=== PATIENT | male | born 1940 | race Caucasian/White ===

== ENCOUNTER 2016-08-21 14:20 | Emergency (ER) | payer MEDICARE, BC ==
[~2016-08-21] VITALS: Ht 170.2 cm; Wt 99.0 kg
[~2016-08-21 14:20] MED LIST: ATEN1TAB75 PO; CHLORTHALIDONE PO; GABA600T PO; GLUCTAB PO; GLYB1TAB51 PO; KLOR8TAB PO; L-THYROXINE PO; MAGN400T PO; META800 PO; OMEG1CAP53 PO; PIRO20CA PO; STOO100C PO; TAB-TAB PO; ZOCO40TA PO; [UNRECOGNIZED DRUG - CODE] PO
[2016-08-21 14:22] VITALS: BP 162/84; PULSE 16; PULSE 64; RESP 16; TEMP 98.1; O2SAT 94
--- NOTE | 2016-08-21 15:00 | PD ---
HPI Chief Complaint: Hypertension Time Seen by Provider: 14:40 Travel History International Travel<30 days: No Contact w/Intl Traveler<30days: No Traveled to known affect area: No History of Present Illness HPI This 76-year-old male presents emergency department complaining of "my blood pressure". He states that he is a history of high blood pressure. He was taking atenolol 150 mg daily, as well as chlorthalidone. Is a pain management a couple days ago when he had a blood pressure 216/100. He was sent to [facility] oriented some blood work done, they gave him some what sounds like clonidine, and started him on amlodipine. Blood pressure was improved but then today he noticed some headache, and a blood pressure 187/100 at [facility]. He went to the fire department is 162/98 so follow-up in the emergency department here. He's also primary care doctor yesterday had him stop the chlorthalidone and is continuing really to see atenolol 150, and 5 mg of Norvasc. History Past Medical History Narrative Medical Hypertension Diabetes Social History Alcohol Use: No Tobacco Use: No Allergies-Medications (Allergen,Severity, Reaction): Coded Allergies: Sulfa (Verified Allergy, Severe, RASH, 08/21/16) Actifed (Verified Allergy, Intermediate, HYPERACTIVE, 08/21/16) Sudafed (Verified Allergy, Mild, HYPERACTIVE, 08/21/16) Reported Meds & Prescriptions Reported Meds & Active Scripts Active Skelaxin (Metaxalone) 800 Mg Tab 800 Mg PO Q8HR PRN Reported Gabapentin 600 Mg Tab 600 Mg PO DAILY Piroxicam 20 mg (Piroxicam) Unknown Strength Cap Unknown Dose PO DAILY Klor-Con 8 (Potassium Chloride) 8 Meq Tab 8 Meq PO DAILY Glucophage (Metformin HCl) 500 Mg Tab 500 Mg PO BID Diabeta (Glyburide) 5 Mg Tab 5 Mg PO BID [L-Thyroxine ] 25 Mg PO DAILY Zocor 40 mg (Simvastatin) 40 Mg Tab 40 Mg PO DAILY [Clorthaldone] 1 Tab PO DAILY 50/75 MG 1 TAB DAILY Lovaza (Fish Oil) 1 Gm Cap 2 Gm PO BID Feldene (Piroxicam) 10 Mg Cap 10 Mg PO DAILY Colace (Docusate Sodium) 100 Mg Cap 100 Mg PO DAILYPRN Mag-Ox 400 (Magnesium Oxide) 400 Mg Tab 400 Mg PO DAILY Multivitamin (Multivitamins) 1 Tab Tab 1 Tab PO DAILY Tenormin (Atenolol) 100 Mg Tab 150 Mg PO DAILY Review of Systems Except as stated in HPI: all other systems reviewed are Neg Physical Exam Narrative GENERAL: Well-appearing 36 old man, no acute distress. SKIN: Warm and dry. HEAD: Atraumatic. Normocephalic. EYES: Pupils equal and round. No scleral icterus. No injection or drainage. ENT: No nasal bleeding or discharge. Mucous membranes pink and moist. NECK: Trachea midline. No JVD. CARDIOVASCULAR: Regular rate and rhythm. No murmur appreciated. RESPIRATORY: No accessory muscle use. Clear to auscultation. Breath sounds equal bilaterally. GASTROINTESTINAL: Abdomen soft, non-tender, nondistended. Hepatic and splenic margins not palpable. MUSCULOSKELETAL: No obvious deformities. No clubbing. No cyanosis. No edema. NEUROLOGICAL: Awake and alert. No obvious cranial nerve deficits. Motor grossly within normal limits. Normal speech. PSYCHIATRIC: Appropriate mood and affect; insight and judgment normal. Data Data Last Documented VS Vital Signs Date Time Temp Pulse Resp B/P Pulse Ox O2 Delivery O2 Flow Rate FiO2 08/21/16 14:22 98.1 64 16 162/84 94 MDM Medical Decision Making Medical Screen Exam Complete: Yes Emergency Medical Condition: Yes Differential Diagnosis Paced medical hypertension, headache, head bleed, essential hypertension, other Narrative Course Medical decision making 76-year-old man presents emergent [place] of some headache, elevated blood pressure. Blood pressure is 170s over 100. He looks well. He was just started on amlodipine 2 days ago. I think he needs more time on the amlodipine. I encourage and keep a blood pressure log. Headache may be secondary to blood pressure may not be. I will see any evidence of hemorrhage or ICH. It sounds like he was pretty asymptomatic when he first was told he had elevated blood pressure at his pain management doctor's office incidentally. Diagnosis Primary Impression: High blood pressure Additional Instructions: Keep a log of your blood pressures. Follow-up with her primary care doctor in 2-4 days. Return to the emergency department for any worsening headache, chest pain or trouble breathing, persistent elevated pressures greater than 220/120, or any other new or worsening symptoms. Med/Other Pt SpecificInfo: No Change to Meds Disposition: 01 DISCHARGE HOME Condition: Stable Mahin Brito MD Aug 21, 2016 15:00
[2016-08-21] MEDS ORDERED: ATEN100T PO (15:02)
[2016-08-21] MEDS ORDERED: CENTTAB PO (15:02)
[2016-08-21] MEDS ORDERED: GABA600T PO (15:02)
[2016-08-21] MEDS ORDERED: ASPI81CH CHEW (15:02)
[2016-08-21] MEDS ORDERED: SYNT25TA PO (15:02)
[2016-08-21] MEDS ORDERED: OXYC-395 PO (15:02)
[2016-08-21] MEDS ORDERED: METF1000 PO (15:02)
[2016-08-21] MEDS ORDERED: ATOR1TAB18 PO (15:02)
[2016-08-21] MEDS ORDERED: GLYB5TAB3 PO (15:02)
[2016-08-21] MEDS ORDERED: AMLO5TAB2 PO (15:02)
[2016-08-21] MEDS ORDERED: OMEGCAP PO (15:02)
[2016-08-21] MEDS ORDERED: SITA50 PO (15:02)
[2016-08-21] MEDS ORDERED: DICL75TA PO (15:02)
[2016-08-21] MEDS ORDERED: LACT10SO27 (15:02)
== END 2016-08-21 15:13 | disposition home or self-care (01) ==
LOC: PHED 14:20
DX: I10 Essential (primary) hypertension (principal); E11.9 Type 2 diabetes mellitus without complications; Z79.84 Long term (current) use of oral hypoglycemic drugs
CPT/HCPCS: 99283

== ENCOUNTER 2018-04-06 17:25 | Observation (INO) ==
--- NOTE | 2018-04-06 17:40 | ED ---
HPI General Chief Complaint: Chest Pain Stated Complaint: Chest pain x last night Time Seen by Provider: 04/06/18 17:34 Source: patient Mode of arrival: ambulatory Limitations: no limitations History of Present Illness HPI narrative: The patient is a 77-year-old male who presents to the emergent pain. The patient states he developed chest pain last night approximately 4 AM that awakened him from his sleep. 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 The patient was awakened at 4 AM with substernal chest pain which was dull, aching, and associate with mild diaphoresis. The patient does have a history of chronic back pain for which he takes oxycodone, states occasionally he will have diaphoresis when he has not taken his medication. The patient's pain lasted approximately 15 minutes and then self resolved. The patient then had several episodes throughout the day of substernal nonradiating chest pain associated with diaphoresis but no shortness of breath, nausea, or vomiting. The patient states multiple episodes today that were not related to exertion. He denies any exertional symptoms. He denies any history of known coronary artery disease and catheterization or stress test. The patient does have a history of hypertension, hyperlipidemia, and diabetes. The patient quit smoking in . The patient denies any history of pulmonary embolism, DVT, recent travel, recent hospitalizations, or present prolonged travel. The patient did have a nerve burning procedure performed on an outpatient basis yesterday. MD complaint: Reports chest pain STEMI Alert: No Onset (ago): hour(s) Duration: intermittent Onset: during rest Pain location: Reports substernal Severity: moderate Severity scale (1-10): 5 Quality: Reports aching and dull Pain radiation: Reports none Relieving factors: nothing Exacerbating factors: nothing Associated symptoms: Reports diaphoresis Treatments prior to arrival chest pain: Reports none Related Data Home Medications Medication Instructions Recorded Confirmed amlodipine 5 mg PO DAILY 04/06/18 04/06/18 aspirin [Aspir-Low] 81 mg PO DAILY 04/06/18 04/06/18 atenolol 150 mg PO DAILY 04/06/18 04/06/18 atorvastatin 80 mg PO DAILY 04/06/18 04/06/18 gabapentin 1,800 mg PO HS 04/06/18 04/06/18 gabapentin 600 mg PO DAILY 04/06/18 04/06/18 glyburide 5 mg PO DAILY 04/06/18 04/06/18 levothyroxine [Synthroid] 25 mcg PO DAILY 04/06/18 04/06/18 metformin 1,200 mg PO BID 04/06/18 04/06/18 oxycodone 10 mg PO TID 04/06/18 04/06/18 oxycodone 20 mg PO HS 04/06/18 04/06/18 sitagliptin [Januvia] 50 mg PO DAILY 04/06/18 04/06/18 Allergies Allergy/AdvReac Type Severity Reaction Status Date / Time Sulfa (Sulfonamide Allergy Severe RASH Verified 04/06/18 18:00 Antibiotics) triprolidine Allergy Intermediate HYPERACTIVE Verified 04/06/18 18:00 pseudoephedrine Allergy Mild HYPERACTIVE Verified 04/06/18 18:00 Review of Systems ROS: all other systems reviewed are negative [facility] Medical History Medical History Chronic back pain (Acute) Diabetes (Acute) High cholesterol (Acute) Hypertension (Acute) Social History Social History Substance History: No History of Abuse Smoking Status: Former smoker Tobacco Type: Cigarettes How Often Do You Have a Drink Containing Alcohol: Never Recent Travel in [facility] within the Last 8 Weeks: No Recent Out of Country Travel within the Last 8 Weeks: No Exam Narrative Exam Narrative: GENERAL: Awake, alert, pleasant 77-year-old male who appears his stated age and is in no acute respiratory distress. SKIN: Focused skin assessment warm/dry. HEAD: Atraumatic. Normocephalic. EYES: Pupils equal and round. No scleral icterus. No injection or drainage. ENT: No nasal bleeding or discharge. Mucous membranes pink and moist. NECK: Trachea midline. No JVD. CARDIOVASCULAR: Regular rate and rhythm. No murmur appreciated. RESPIRATORY: No accessory muscle use. Clear to auscultation. Breath sounds equal bilaterally. GASTROINTESTINAL: Abdomen soft, non-tender, nondistended. No epigastric tenderness. No guarding rigidity. Back: 2 Band-Aids noted in the lower lumbar region. MUSCULOSKELETAL: No obvious deformities. No clubbing. No cyanosis. No edema. NEUROLOGICAL: Awake and alert. No obvious cranial nerve deficits. Motor grossly within normal limits. Normal speech. Nonfocal. PSYCHIATRIC: Appropriate mood and affect; insight and judgment normal. Course Initial Documented Vital Signs Temperature 97.7 F 11/07/18 17:30 Pulse Rate 83 04/06/18 17:30 Respiratory Rate 18 04/06/18 17:30 Blood Pressure 176/72 H 04/06/18 17:30 Pulse Oximetry 97 04/06/18 17:30 Last Documented Vital Signs Temperature 97.7 F 04/06/18 17:30 Pulse Rate 70 04/06/18 18:22 Respiratory Rate 18 04/06/18 18:22 Blood Pressure 152/78 H 04/06/18 18:22 Pulse Oximetry 96 04/06/18 18:22 Medical Decision Making MDM Narrative Medical decision making narrative: IV was established, labs are drawn and sent, and the patient was placed on cardiac telemetry monitoring and continuous pulse oximetry monitoring. EKG was ordered and interpreted. Chest x-ray was obtained. The patient was administered aspirin 162 mg orally, however, the medications were held as EKG was unremarkable initially and patient was chest pain-free upon arrival. Troponin and CPK were sent to lab. The patient's initial troponin and CPK were negative. White count was minimally elevated at 14.2. Chest x-ray reveals poor inspiratory effort otherwise atelectasis and no other acute cardiopulmonary abnormalities noted. The patient does have substernal chest pain could be ACS versus reflux, however, he is a male over the age of 50 5U has hypertension, hyperlipidemia, and diabetes but no previous stress test. Therefore, the patient will be a 23-hour observation to the chest pain center for serial cardiac enzymes and further evaluation by cardiology. The patient states he will need his Neurontin and oxycodone for his neuropathy, otherwise, he will be "miserable". Medical Screen Exam Complete: Yes Emergency Medical Condition: Yes Differential Diagnosis Differential Diagnosis: Differential diagnosis includes ACS, STEMI, GERD, esophageal spasm, reflux, gastritis, peptic ulcer disease, esophageal spasm, pneumonia, dissection. Lab Data Result diagrams: 04/06/18 17:35 04/06/18 17:35 Lab Results 04/06/18 04/06/18 04/06/18 Range/Units 17:35 17:35 17:35 CBC w Diff Auto diff final WBC 14.2 H (4.0-11.0) th/mm3 RBC 5.17 (4.50-5.90) mil/mm3 Hgb 14.8 (13.0-17.0) gm/dL Hct 45.0 (39.0-51.0) % MCV 86.9 (80.0-100.0) fL MCH 28.7 (27.0-34.0) pg MCHC 33.0 (32.0-36.0) % RDW 14.6 (11.6-17.2) % Plt Count 212 (150-450) th/mm3 MPV 8.4 (7.0-11.0) fL Neut % (Auto) 85.7 H (16.0-70.0) % Lymph % (Auto) 10.7 (9.0-44.0) % [place] % (Auto) 2.9 (0.0-8.0) % Eos % (Auto) 0.1 (0.0-4.0) % Baso % (Auto) 0.6 (0.0-2.0) % Neut # (Auto) 12.2 H (1.8-7.7) th/mm3 Lymph # (Auto) 1.5 (1.0-4.8) th/mm3 [place] # (Auto) 0.4 (0.0-0.9) th/mm3 Eos # (Auto) 0.0 (0.0-0.4) th/mm3 Baso # (Auto) 0.1 (0.0-0.2) th/mm3 WBC Differential . Differential Comment . PT 10.6 (9.8-11.6) sec INR 1.0 Ratio APTT 32.9 H (23.4-31.7) sec Sodium 137 (136-145) meq/L Potassium 4.2 (3.5-5.1) meq/L Chloride 101 (98-107) meq/L Carbon Dioxide 25.8 (21.0-32.0) meq/L Anion Gap 10 (5-15) meq/L BUN 23 H (7-18) mg/dL Creatinine 1.30 (0.60-1.30) mg/dL Estimated GFR 54 L (>89) mL/min Random Glucose 293 H (74-106) mg/dL Calcium 9.2 (8.5-10.1) mg/dL Magnesium (1.5-2.5) mg/dL Total Bilirubin 0.5 (0.2-1.0) mg/dL AST 13 L (15-37) U/L ALT 25 (12-78) U/L Alkaline Phosphatase 113 (45-117) U/L Total Creatine Kinase 143 (39-308) U/L CK-MB (CK-2) 6.5 H (0.5-3.6) ng/mL Troponin I Less than 0.02 L (0.02-0.05) ng/mL Total Protein 8.3 H (6.4-8.2) g/dL Albumin 3.8 (3.4-5.0) g/dL Lipase 179 (73-393) U/L 04/06/18 Range/Units 17:35 CBC w Diff WBC (4.0-11.0) th/mm3 RBC (4.50-5.90) mil/mm3 Hgb (13.0-17.0) gm/dL Hct (39.0-51.0) % MCV (80.0-100.0) fL MCH (27.0-34.0) pg MCHC (32.0-36.0) % RDW (11.6-17.2) % Plt Count (150-450) th/mm3 MPV (7.0-11.0) fL Neut % (Auto) (16.0-70.0) % Lymph % (Auto) (9.0-44.0) % [place] % (Auto) (0.0-8.0) % Eos % (Auto) (0.0-4.0) % Baso % (Auto) (0.0-2.0) % Neut # (Auto) (1.8-7.7) th/mm3 Lymph # (Auto) (1.0-4.8) th/mm3 [place] # (Auto) (0.0-0.9) th/mm3 Eos # (Auto) (0.0-0.4) th/mm3 Baso # (Auto) (0.0-0.2) th/mm3 WBC Differential Differential Comment PT (9.8-11.6) sec INR Ratio APTT (23.4-31.7) sec Sodium (136-145) meq/L Potassium (3.5-5.1) meq/L Chloride (98-107) meq/L Carbon Dioxide (21.0-32.0) meq/L Anion Gap (5-15) meq/L BUN (7-18) mg/dL Creatinine (0.60-1.30) mg/dL Estimated GFR (>89) mL/min Random Glucose (74-106) mg/dL Calcium (8.5-10.1) mg/dL Magnesium 2.0 (1.5-2.5) mg/dL Total Bilirubin (0.2-1.0) mg/dL AST (15-37) U/L ALT (12-78) U/L Alkaline Phosphatase (45-117) U/L Total Creatine Kinase (39-308) U/L CK-MB (CK-2) (0.5-3.6) ng/mL Troponin I (0.02-0.05) ng/mL Total Protein (6.4-8.2) g/dL Albumin (3.4-5.0) g/dL Lipase (73-393) U/L Imaging Data Radiologist's impression: Chest X-Ray 04/06/18 17:34 CONCLUSION: Hypoaerated lungs with mild left basilar atelectasis No other evidence of acute process. ECG Data EKG Prior to Arrival: Yes Attestation: I personally reviewed and interpreted this ECG as follows: Interpretation: EKG reveals normal sinus rhythm with a rate 82. No ischemic changes or ectopy noted. Discharge Plan Discharge Disposition Patient Disposition: 30 Still Patient Discharge Condition Condition: Stable Discharge Details Diagnosis: Chest pain Physicians Team ED Provider: Cas Matias Primary Care Provider: Ryan López Rxs /Orders / Referrals /Forms Prescriptions: No Action atorvastatin 80 mg Tablet 80 mg PO DAILY RF: 0 gabapentin 600 mg Tablet 1,800 mg PO HS RF: 0 gabapentin 600 mg Tablet 600 mg PO DAILY RF: 0 glyburide 5 mg Tablet 5 mg PO DAILY RF: 0 atenolol 100 mg Tablet 150 mg PO DAILY RF: 0 amlodipine 5 mg Tablet 5 mg PO DAILY RF: 0 aspirin [Aspir-Low] 81 mg Tablet,Delayed Release (Dr/Ec) 81 mg PO DAILY RF: 0 levothyroxine [Synthroid] 25 mcg Tablet 25 mcg PO DAILY RF: 0 metformin 1,000 mg Tablet 1,200 mg PO BID RF: 0 sitagliptin [Januvia] 50 mg Tablet 50 mg PO DAILY RF: 0 oxycodone 10 mg Tablet 10 mg PO TID RF: 0 oxycodone 20 mg Tablet 20 mg PO HS RF: 0 Discharge Instructions Patient Printed Instructions: Chest Pain (ED) Status ED Status: Admitted Observation Patient
--- NOTE | 2018-04-06 17:48 | XR ---
EXAM DATE: 04/06/2018 5:43 PM EST AGE/SEX: 77 years / Male INDICATIONS: Chest pain. CLINICAL DATA: This is the patient's initial encounter. Patient reports that signs and symptoms have been present for 1 day and indicates a pain score of 8/10. MEDICAL/SURGICAL HISTORY: Hypertension. Diabetes. None. COMPARISON: No prior exams available for comparison. FINDINGS: Lungs are hypoaerated. Some minimal airspace disease is seen on the left. Heart and mediastinal structures appear normal. Osseous structures are intact. CONCLUSION: Hypoaerated lungs with mild left basilar atelectasis No other evidence of acute process. Electronically signed by: Pillo Springer MD 04/06/2018 5:47 PM EST
[2018-04-06 17:51] LABS: Baso # (Auto) 0.1 th/mm3 (0.0-0.2); Baso % (Auto) 0.6 % (0.0-2.0); Eos % (Auto) 0.1 % (0.0-4.0); Hemoglobin 14.8 gm/dL (13.0-17.0); Lymph # (Auto) 1.5 th/mm3 (1.0-4.8); Lymph % (Auto) 10.7 % (9.0-44.0); Mean Corpuscular Hemoglobin 28.7 pg (27.0-34.0); Mean Corpuscular Volume 86.9 fL (80.0-100.0); Mean Platelet Volume 8.4 fL (7.0-11.0); Mono # (Auto) 0.4 th/mm3 (0.0-0.9); Mono % (Auto) 2.9 % (0.0-8.0); Neut # (Auto) 12.2 th/mm3 (1.8-7.7); Neut % (Auto) 85.7 % (16.0-70.0); Platelet Count 212 th/mm3 (150-450); Red Blood Count 5.17 mil/mm3 (4.50-5.90); Red Cell Distribution Width 14.6 % (11.6-17.2); White Blood Count 14.2 th/mm3 (4.0-11.0)
[2018-04-06 18:05] LABS: Chloride 101 meq/L (98-107); Potassium 4.2 meq/L (3.5-5.1); Sodium 137 meq/L (136-145)
[2018-04-06 18:08] LABS: Calcium 9.2 mg/dL (8.5-10.1)
[2018-04-06 18:09] LABS: Activated Partial Thrombo Time 32.9 sec (23.4-31.7); Albumin 3.8 g/dL (3.4-5.0); Anion Gap 10 meq/L (5-15); Blood Urea Nitrogen 23 mg/dL (7-18); Carbon Dioxide 25.8 meq/L (21.0-32.0); Glucose,Random 293 mg/dL (74-106); Lipase 179 U/L (73-393); Prothrombin Time 10.6 sec (9.8-11.6)
[2018-04-06 18:12] LABS: Alanine Aminotransferase 25 U/L (12-78); Aspartate Aminotransferase 13 U/L (15-37); Glomerular Filtration Rate 54 mL/min (>89)
[2018-04-06 18:13] LABS: Total Protein 8.3 g/dL (6.4-8.2)
[2018-04-06 18:14] LABS: Alkaline Phosphatase 113 U/L (45-117); Creatine Kinase 143 U/L (39-308)
[2018-04-06] MEDS ORDERED: Gabapentin 100 MG Capsule PO ONE (18:23)
[2018-04-06 18:27] LABS: Creatine Kinase MB 6.5 ng/mL (0.5-3.6)
[2018-04-06] MEDS ORDERED: Acetaminophen 500 MG Tablet PO PRN (18:32)
[2018-04-06] MEDS ORDERED: Dextrose 50% in Water 50 ML Vial IV.PUSH PRN (18:37)
[2018-04-06] MEDS ORDERED: Gabapentin 300 MG Capsule PO ONE (19:00)
[2018-04-06 21:25] LABS: Creatine Kinase 122 U/L (39-308)
[2018-04-06] MEDS: Insulin NovoLOG Aspart Correctional Sugar Inj SQ SCH (21:42)
[2018-04-07 00:07] LABS: Creatine Kinase 119 U/L (39-308)
--- NOTE | 2018-04-07 06:26 | P.HP ---
History of Present Illness Primary Care Physician: Ryan López DO Chief Complaint: Chest pain History of Present Illness: 77-year-old male with known history of hypertension, hyperlipidemia, diabetes, chronic back pain, peripheral neuropathy who presented to the hospital because of chest discomfort. 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 Patient states that he went to sleep and was woke up because of chest pain located in the middle part of his chest at approximately 5:30 AM. Patient states that it was a 3/10 on a pain scale which she describes as a burning type sensation. Lasted for approximately 10 minutes and went away on its own. Patient states that the pain did return approximately 3-4 times during the day which prompted him to come to the emergency department. Patient states that he is had this type of discomfort in the back in usually related to gastric reflux. He usually takes Gaviscon with relief. However he did not take any during this episode. Patient denies any radiation to his back, neck, shoulder, arm. Denied any nausea, vomiting, diaphoresis, shortness of breath, dyspnea, lightheadedness, dizziness. Patient has never been seen by a manager database administration and is never had any cardiac workup to include stress testing. Because of the patient's increased risk factors and presentation it was recommended that the patient be observed in the chest pain center for further evaluation and management. - Diagnosis (1) Chest pain Review of Systems All other systems reviewed negative except as stated in HPI Cardiovascular: Reports chest pain Gastrointestinal: Reports heartburn PMFSH - History History Provided By: Patient - Medical History Medical History: Medical History (Last Updated 04/07/18 @ 06:13 by JOHNNY Figueroa) Hypothyroidism Chronic back pain Diabetes High cholesterol Hypertension - Surgical History Surgical History: Surgical History (Last Updated 04/07/18 @ 06:22 by JOHNNY Figueroa) History of appendectomy History of hernia repair History of left hip replacement History of right knee joint replacement - Family History Family History: Family History (Last Updated 04/07/18 @ 06:23 by JOHNNY Figueroa) Mother Family history of heart disease Father Family history of heart disease - Tobacco History Second Hand Smoke Exposure: No Tobacco Use In Past 30 Days: No Smoking Status: Never smoker Tobacco Type: Cigarettes Number of Pack Years (if former smoker): 25 (Quit smoking in 1974) - Alcohol History How Often Do You Have a Drink Containing Alcohol: Never - Substance Use History Substance History: No History of Abuse - Travel History Recent Travel in the [place] Within the Last 8 Weeks: No Recent Travel Out of the Country Within the Last 8 Weeks: No - Immunization History Tetanus Immunization: <5 Years Medications and Allergies Active Medications: Active Medications Acetaminophen (Tylenol) 500 mg PO Q4H PRN PRN Reason: Headache, fever, pain 1-4 Amlodipine Besylate (Norvasc) 5 mg PO DAILY [facility] Aspirin (Ecotrin) 81 mg PO DAILY [facility] Atorvastatin Calcium (Lipitor) 80 mg PO DAILY [facility] Dextrose (D50w Vial) 50 ml IV.PUSH UNSCH PRN PRN Reason: PER HYPOGLYCEMIA PROTOCOL Glucagon (Glucagon Inj) 1 mg OTHER PRN PRN PRN Reason: for Hypoglycemia Protocol Insulin Aspart (Novolog Insulin Correctional Sugar Inj) 0 unit SQ ACHS [facility]; Protocol Last Admin: 04/06/18 21:42 Dose: 3 unit Levothyroxine Sodium (Synthroid) 25 mcg PO DAILY@0600 [facility] Last Admin: 04/07/18 05:02 Dose: Not Given Non-Formulary Medication (Gabapentin [Gabapentin]) 600 mg PO DAILY [facility] Ondansetron HCl (Zofran Inj) 4 mg IV.PUSH Q6H PRN PRN Reason: NAUSEA Oxycodone HCl (Roxicodone) 10 mg PO TID [facility] Sodium Chloride (Ns Flush) 2 ml IV.FLUSH UNSCH PRN PRN Reason: FLUSH AFTER USING IV ACCESS Sodium Chloride (Ns Flush) 2 ml IV.FLUSH BID [facility] Last Admin: 04/06/18 21:43 Dose: 2 ml Sodium Chloride (Ns Flush) 2 ml IV.FLUSH PRN PRN PRN Reason: FLUSH AFTER USING IV ACCESS Allergies Allergy/AdvReac Type Severity Reaction Status Date / Time Sulfa (Sulfonamide Allergy Severe RASH Verified 04/06/18 18:00 Antibiotics) triprolidine Allergy Intermediate HYPERACTIVE Verified 04/06/18 18:00 pseudoephedrine Allergy Mild HYPERACTIVE Verified 04/06/18 18:00 Home Medications Medication Instructions Recorded Confirmed Type amlodipine 5 mg PO DAILY 04/06/18 04/06/18 History aspirin [Aspir-Low] 81 mg PO DAILY 04/06/18 04/06/18 History atenolol 150 mg PO DAILY 04/06/18 04/06/18 History atorvastatin 80 mg PO DAILY 04/06/18 04/06/18 History gabapentin 1,800 mg PO HS 04/06/18 04/06/18 History gabapentin 600 mg PO DAILY 04/06/18 04/06/18 History glyburide 5 mg PO DAILY 04/06/18 04/06/18 History levothyroxine [Synthroid] 25 mcg PO DAILY 04/06/18 04/06/18 History metformin 1,200 mg PO BID 04/06/18 04/06/18 History oxycodone 10 mg PO TID 04/06/18 04/06/18 History oxycodone 20 mg PO HS 04/06/18 04/06/18 History sitagliptin [Januvia] 50 mg PO DAILY 04/06/18 04/06/18 History Exam Vital signs: Vital Signs 04/06/18 17:30 04/06/18 17:40 04/06/18 18:22 Temperature 97.7 F Pulse Rate 83 84 70 Respiratory Rate 18 18 Blood Pressure 176/72 H 152/78 H Pulse Oximetry 97 97 96 04/06/18 19:36 04/06/18 20:15 04/06/18 20:43 Temperature 96.9 F L Pulse Rate 68 61 63 Respiratory Rate 16 20 Blood Pressure 164/76 H 129/65 Pulse Oximetry 93 L 95 04/07/18 00:00 04/07/18 00:17 04/07/18 04:00 Temperature 97.3 F L 96.4 F L Pulse Rate 60 59 L 72 Respiratory Rate 20 20 Blood Pressure 139/68 167/80 H Pulse Oximetry 95 93 L Intake & Output 04/06/18 04/06/18 04/07/18 06:59 18:59 06:59 Intake Total 365 / 365 Balance 365 / 365 Weight 101.3 kg 99.1 kg Intake: Oral 365 / 365 Other: # Bowel Movements 2 Weight On Admission 99.5 kg Narrative: GENERAL: Well-developed, well-nourished, in no acute distress. alert and orientated HEENT: Head is normocephalic without any lesions or masses noted. Facial features are symmetric. Eyes: Pupils equal round reactive to light. Extraocular muscles are intact. Conjunctivae were clear. Oropharyngeal: Pharynx without any erythema edema. Tongue is midline without deviation. Buccal mucosa is moist without any masses or lesions NECK: Supple without any masses. Trachea midline no deviation. No JVD, no bruits are appreciated CARDIAC: Regular rhythm, regular rate. S1/S2 are heard. No murmurs gallops or rubs. LUNGS: Clear to auscultation bilaterally. No wheeze, rhonchi or rales. No use of accessory muscles on inspiration or expiration. ABDOMEN: Soft, nontender. Nondistended. Bowel sounds heard in all 4 quadrants. No organomegaly or masses. Negative rebound, negative guarding EXTREMITIES: No edema, pulses are equal bilaterally. No cyanosis or clubbing NEUROLOGY: Mood and affect appear appropriate. Cranial nerves II through XII grossly intact. Muscle strength 5/5 in upper and lower extremities bilaterally. Deep tendon reflexes are 2+ in upper and lower extremities bilaterally. Results - Labs CBC & Chem 7: 04/07/18 15:19 04/08/18 00:01 Labs: Laboratory Results - last 24 hr 04/06/18 04/06/18 04/06/18 17:35 17:35 17:35 CBC w Diff Auto diff final WBC 14.2 H RBC 5.17 Hgb 14.8 Hct 45.0 MCV 86.9 MCH 28.7 MCHC 33.0 RDW 14.6 Plt Count 212 MPV 8.4 Neut % (Auto) 85.7 H Lymph % (Auto) 10.7 Hardeman % (Auto) 2.9 Eos % (Auto) 0.1 Baso % (Auto) 0.6 Neut # (Auto) 12.2 H Lymph # (Auto) 1.5 Hardeman # (Auto) 0.4 Eos # (Auto) 0.0 Baso # (Auto) 0.1 WBC Differential . Differential Comment . PT 10.6 INR 1.0 APTT 32.9 H Sodium 137 Potassium 4.2 Chloride 101 Carbon Dioxide 25.8 Anion Gap 10 BUN 23 H Creatinine 1.30 Estimated GFR 54 L POC Glucose Random Glucose 293 H Calcium 9.2 Magnesium Total Bilirubin 0.5 AST 13 L ALT 25 Alkaline Phosphatase 113 Total Creatine Kinase 143 CK-MB (CK-2) 6.5 H Troponin I Less than 0.02 L Total Protein 8.3 H Albumin 3.8 Lipase 179 04/06/18 04/06/18 04/06/18 17:35 21:00 21:29 CBC w Diff WBC RBC Hgb Hct MCV MCH MCHC RDW Plt Count MPV Neut % (Auto) Lymph % (Auto) Hardeman % (Auto) Eos % (Auto) Baso % (Auto) Neut # (Auto) Lymph # (Auto) Hardeman # (Auto) Eos # (Auto) Baso # (Auto) WBC Differential Differential Comment PT INR APTT Sodium Potassium Chloride Carbon Dioxide Anion Gap BUN Creatinine Estimated GFR POC Glucose 242 H Random Glucose Calcium Magnesium 2.0 Total Bilirubin AST ALT Alkaline Phosphatase Total Creatine Kinase 122 CK-MB (CK-2) Troponin I Less than 0.02 L Total Protein Albumin Lipase 04/06/18 23:35 CBC w Diff WBC RBC Hgb Hct MCV MCH MCHC RDW Plt Count MPV Neut % (Auto) Lymph % (Auto) Hardeman % (Auto) Eos % (Auto) Baso % (Auto) Neut # (Auto) Lymph # (Auto) Hardeman # (Auto) Eos # (Auto) Baso # (Auto) WBC Differential Differential Comment PT INR APTT Sodium Potassium Chloride Carbon Dioxide Anion Gap BUN Creatinine Estimated GFR POC Glucose Random Glucose Calcium Magnesium Total Bilirubin AST ALT Alkaline Phosphatase Total Creatine Kinase 119 CK-MB (CK-2) Troponin I Less than 0.02 L Total Protein Albumin Lipase - Imaging Impressions Chest X-Ray 04/06/18 17:34 CONCLUSION: Hypoaerated lungs with mild left basilar atelectasis No other evidence of acute process. Caprini VTE Risk Assessment Caprini VTE Risk Assessment: Moderate/High Risk (score >= 2) Caprini Risk Assessment Model: Point Value = 1 Point Value = 2 Point Value = 3 Point Value = 5 Age 41-60 Minor surgery BMI > 25 kg/m2 Swollen legs Varicose veins or History of unexplained or recurrent spontaneous Oral contraceptives or hormone replacement Sepsis (< 1 month) Serious lung disease, including pneumonia (< 1 month) Abnormal pulmonary function Acute myocardial infarction Congestive heart failure (< 1 month) History of inflammatory bowel disease Medical patient at bed rest Age 61-74 Arthroscopic surgery Major open surgery (> 45 min) Laparoscopic surgery (> 45 min) Malignancy Confined to bed (> 72 hours) Immobilizing plaster cast Central venous access Age >= 75 History of VTE Family history of VTE Factor V Leiden Prothrombin [id number] Lupus anticoagulant Anticardiolipin antibodies Elevated serum homocysteine Heparin-induced thrombocytopenia Other congenital or acquired thrombophilia Stroke (< 1 month) Elective arthroplasty Hip, pelvis, or leg fracture Acute spinal cord injury (< 1 month) Prophylaxis Regimen: Total Risk Factor Score Risk Level Prophylaxis Regimen 0-1 Low Early ambulation 2 Moderate Order ONE of the following: *Sequential Compression Device (SCD) *Heparin 5000 units SQ BID 3-4 Higher Order ONE of the following medications: *Heparin 5000 units SQ TID *Enoxaparin/Lovenox 40 mg SQ daily (WT < 150 kg, CrCl > 30 mL/min) *Enoxaparin/Lovenox 30 mg SQ daily (WT < 150 kg, CrCl > 10-29 mL/min) *Enoxaparin/Lovenox 30 mg SQ BID (WT < 150 kg, CrCl > 30 mL/min) AND/OR *Sequential Compression Device (SCD) 5 or more Highest Order ONE of the following medications: *Heparin 5000 units SQ TID (Preferred with Epidurals) *Enoxaparin/Lovenox 40 mg SQ daily (WT < 150 kg, CrCl > 30 mL/min) *Enoxaparin/Lovenox 30 mg SQ daily (WT < 150 kg, CrCl > 10-29 mL/min) *Enoxaparin/Lovenox 30 mg SQ BID (WT < 150 kg, CrCl > 30 mL/min) AND *Sequential Compression Device (SCD) Assessment and Plan - Assessment (1) Chest pain Code(s): R07.9 - Chest pain, unspecified Status: Acute - Plan Chest pain -Patient does have significantly increased risk factors to include age, male, hypertension, hyper lipidemia, diabetes, history of tobacco use, family history of heart disease -Patient has been ruled out for acute coronary event with serial cardiac enzymes that have remained negative -Serial EKGs reviewed by myself which shows sinus rhythm without any changes -Discussed with patient that he has been ruled out for any cardiac injury or myocardial infarction, next step would be to pursue stress testing to rule out any underlying ischemia, patient is in agreement -Myocardial perfusion study was performed and indicated moderate size reversible perfusion defect in the apical wall without associated focal wall motion, intermediate risk -Continue monitor telemetry, oxygen as needed -Cardiology consultation requested, plan transfer to the main hospital for cardiac catheterization -Cardiac protection with aspirin, nitroglycerin as needed, beta-joslyn, Norvasc , statin Hypertension, hyperlipidemia -Home medications have been continued -Obtain lipid panel Diabetes -Accu-Cheks with sliding scale insulin Chronic back pain, peripheral neuropathy -Home medications have been continued DVT prevention -Sequential compression devices
[2018-04-07] MEDS: Gabapentin 300 MG Capsule PO SCH ×2 (08:47→20:20)
[2018-04-07] MEDS: amLODIPine 5 MG Tablet PO SCH (08:48)
[2018-04-07] MEDS: Insulin NovoLOG Aspart Correctional Sugar Inj SQ SCH ×4 (08:49→20:19)
[2018-04-07] MEDS ORDERED: Atenolol 100 MG Tablet PO SCH (09:00)
--- NOTE | 2018-04-07 10:20 | ECG ---
Date Performed: 04/06/2018 Time Performed: 20:53:26 PTAGE: 77 years EKG: Sinus rhythm NONSPECIFIC T-WAVE ABNORMALITY Since the previous tracing, no significant change noted BORDERLINE EC G PREVIOUS TRACING : 04/06/2018 17.31 DOCTOR: Darrius Roger Interpretating Date/Time 04/07/2018 10:18:51
--- NOTE | 2018-04-07 10:20 | ECG ---
Date Performed: 04/06/2018 Time Performed: 17:31:13 PTAGE: 77 years EKG: Sinus rhythm NORMAL ECG Since the PREVIOUS TRACING , no significant change noted PREVIOUS TRACIN06/13/2010 09.36 DOCTOR: Darrius Roger Interpretating Date/Time 04/07/2018 10:19:15
[2018-04-07] MEDS ORDERED: Regadenoson Inj 0.4 MG/5 ML Syringe IV.PUSH ONE (10:36)
--- NOTE | 2018-04-07 11:44 | NM ---
EXAM DATE: 04/07/2018 11:34 AM EST AGE/SEX: 77 years / Male INDICATIONS:Angina. . Chest pain. CLINICAL DATA: This is the patient's initial encounter. Patient reports that signs and symptoms have been present for 1 day and indicates a pain score of 1/10. MEDICAL/SURGICAL HISTORY: Diabetes. Hypertension. Hypothyroidism. Inguinal hernia repair. Lef t hip and right knee surgery. COMPARISON: No prior exams available for comparison. DOSE: 8.1 mCi Tc 99m Myoview at rest 26.7 mCi [id number] at stress 0.4 mg Lexiscan STRESS SYMPTOMS: Flushed. EJECTION FRACTION: 56 % TECHNIQUE: The patient underwent pharmacologic stress with infusion of prescribed dose. Continuous ECG tracing was monitored during stress. Gated SPECT imaging was performed after stress and conventi onal SPECT imaging was performed at rest. The examination was performed on a SPECT/CT scanner, both attenuation and non-corrected datasets were reviewed. FINDINGS: Distribution: The maximum perfused segment at stress is in the lateral wall. Perfusion Study: Moderate-sized moderate severity reversible perfusion defect at the apex. Gated Study: There are intact wall motion and wall thickening without hypokinetic or dyskinetic segm ents. The ejection fraction is calculated at 56%. RISK CATEGORY: Intermediate (1-3 % Annual Mortality Rate) CONCLUSION: Moderate-sized reversible perfusion defect of the apical wall without associated focal wall motion ab normality. Finding indicates possible ischemic segment. Electronically signed by: Gustavo Julien MD 04/07/2018 11:43 AM EST
[2018-04-07] MEDS: Atenolol 50 MG Tablet PO SCH ×2 (14:22→17:22)
[2018-04-07 15:31] LABS: Hematocrit 43.7 % (39.0-51.0); Hemoglobin 14.7 gm/dL (13.0-17.0); Mean Corpuscular HGB Conc 33.5 % (32.0-36.0); Mean Corpuscular Hemoglobin 28.4 pg (27.0-34.0); Mean Corpuscular Volume 84.5 fL (80.0-100.0); Platelet Count 209 th/mm3 (150-450); Red Blood Count 5.17 mil/mm3 (4.50-5.90); White Blood Count 13.9 th/mm3 (4.0-11.0)
[2018-04-07 16:14] LABS: Chol/HDL Ratio 2.11 Ratio; HDL Cholesterol 54.5 mg/dL (40.0-60.0)
--- NOTE | 2018-04-07 16:59 | TR ---
Date Performed: 04/07/2018 Time Performed: 10:43:02 DOCTOR: Isa Colon DRUG LIST: CLINICAL HISTORY: REASON FOR TEST: REASON FOR ENDING: OBSERVATION: CONCLUSION: Lexiscan stress test was performed under standard four minute protocol. Radionuclid e was injected one minute prior to ending the test. No electrocardiographic abormalities were present to suggest ischemia. Nuclear imaging and interpretation are pending. COMMENTS: Lexiscan stress test was performed under standard four minute protocol. Radionuclide was injected one minute prior to ending the test. No electrocardiographic abormalities were present t o suggest ischemia. Nuclear imaging and interpretation are pending.
[2018-04-08 00:19] LABS: Chloride 100 meq/L (98-107); Potassium 4.3 meq/L (3.5-5.1); Sodium 137 meq/L (136-145)
[2018-04-08 02:25] LABS: Anion Gap 8 meq/L (5-15); Blood Urea Nitrogen 25 mg/dL (7-18); Calcium 8.2 mg/dL (8.5-10.1); Carbon Dioxide 28.9 meq/L (21.0-32.0); Glomerular Filtration Rate 59 mL/min (>89); Glucose,Random 163 mg/dL (74-106)
[2018-04-08] MEDS: Atenolol 50 MG Tablet PO SCH ×3 (08:45→18:31)
[2018-04-08] MEDS: amLODIPine 5 MG Tablet PO SCH (08:45)
[2018-04-08] MEDS: Gabapentin 300 MG Capsule PO SCH ×2 (08:45→21:17)
[2018-04-08] MEDS: Insulin NovoLOG Aspart Correctional Sugar Inj SQ SCH ×4 (09:20→21:17)
[2018-04-08] MEDS ORDERED: Heparin/NS PF Inj 1,000 ML ONE (12:52)
[2018-04-08] MEDS ORDERED: fentaNYL Citrate Inj 100 MCG/2 ML Ampul ONE (12:52)
[2018-04-08] MEDS ORDERED: Heparin 10,000 UNITS/10 ML Vial (for IV use) ONE (12:52)
[2018-04-08] MEDS ORDERED: Lidocaine PF 1% Inj 30 ML Vial ONE (13:01)
--- NOTE | 2018-04-08 13:18 | MB ---
cc: Prashant Chauhan MD DATE: 04/08/2018 HISTORY OF PRESENT ILLNESS: Bryn is a very pleasant 77-year-old gentleman who has diabetes and who has been experiencing chest pain. Presented to the [place] [facility]. Ruled out for [place]. Had a nuclear stress test, which showed a moderate-sized reversible perfusion defect of the apical wall without associated wall motion abnormality. Findings indicate "possible ischemic segment," intermediate risk, 1%-3% annual mortality. The patient is currently resting in bed comfortably in no acute distress. Denies fever, chills, cough, GI or bleeding, PND, orthopnea, super dizziness. PAST MEDICAL HISTORY: Per history of present illness. ALLERGIES: SULFA, TRIPROLIDINE, PSEUDOEPHEDRINE. SOCIAL HISTORY: Never smoked. Denies alcohol use. MEDICATIONS: 1. Aspirin 81 mg a day. 2. Atenolol 50 mg t.i.d. 3. Lipitor 80 mg daily. 4. Neurontin 600 mg daily. 5. Gabapentin 1800 mg at bedtime. 6. NovoLog insulin. 7. Synthroid 25 mcg daily. PHYSICAL EXAMINATION: VITAL SIGNS: Blood pressure 172/79, pulse 61, respiratory rate 18, temperature 98.4. GENERAL: He is alert and oriented x3, in no acute distress. NECK: Supple. No JVD. No bruit. CARDIOVASCULAR: S1, S2. No murmurs, rubs or gallops. LUNGS: Clear to auscultation bilaterally. ABDOMEN: Soft, nontender, nondistended with positive bowel sounds. EXTREMITIES: No lower extremity edema. LABORATORY DATA: Chest x-ray shows hypoaerated lungs with mild left basilar atelectasis. No other evidence of acute process. EKG: Normal sinus rhythm at 82 beats per minute with normal intervals. White count 13.9, hemoglobin 14.7, hematocrit 43.7, platelet count 209. INR is 1.0. Sodium 137, potassium 4.3, chloride 100, bicarbonate 28.9, BUN 25, creatinine 1.20, glucose 163. Troponins less than 0.02. BNP is 90. DIAGNOSES: 1. Unstable angina. 2. Moderate-risk myocardial perfusion study. 3. Diabetes mellitus. 4. Hypertension. 5. Elevated white count. DISCUSSION: Left heart catheterization is medically necessary, due to a new-onset cardiac symptoms with chest pain at rest, unstable angina, [place] [employer] class IV angina, intermediate risk myocardial perfusion study, and multiple cardiac risk factors including male gender, age greater than 45, diabetes mellitus, and hypertension. MD NARESH Diamond/eros , 01:00 PM , 01:08 PM
[2018-04-08] MEDS ORDERED: Tirofiban Inj 12,500 MCG/250 ML PLAST..BAG ONE (14:15)
[2018-04-08] MEDS ORDERED: Tirofiban Bolus 2,450 MCG in Syringe/Bag 1 EACH IV.SIG ONE (14:37)
[2018-04-08] MEDS ORDERED: Misc Info for Pharmacy OTHER STA (14:37)
[2018-04-08] MEDS ORDERED: Tirofiban Inj 12,500 MCG/250 ML PLAST..BAG IV.CONT SCH (15:00)
--- NOTE | 2018-04-08 15:21 | CATHPROC ---
My [employer] HIS Report Study Information Study Number Admission Scheduled Start Study Start [id number] Apr 07 2018 12:34PM 04/08/2018 Apr 08 2018 12:45PM [place] [facility] Cardiac Catheterization Admit Source Facility Department Emergency department [facility] - Resource Analyst Physician and Clinical Staff Initial Prashant Acuña Research Instrumentation Technician Fely Parra,INDRA Research Instrumentation TechnicianLeigh Pena,INDRA Recorder Yue Meier,TELEGRAPHIC TYPEWRITER INSTALLER TECH2 Scrub Anne Marie Vuong ,RT(R) Procedures Performed Procedure Location (Site) Vessel Name Coronary Angiograms LCA Left Coronary Coronary Angiograms RCA Right Coronary LV Gram-hand inj. LV LV Ventricle PTCA LAD Mid Left Coronary Stent LAD Mid Left Coronary Wire insertion Fem Art (right) Femoral Art Equipment Time Refractory Tile Helper Description Size Mfg Part Number Used/Scraped [id number] 13:54 DE [employer] WIRE, ASAB2X [employer] PROWATER 180CM 180CM Used *[id number] TRANSDUCER, TRUWAVE [id number] 13:05 CHASE EMERSON * Used W/STOCKCOCK *[id number] 538-420 *[id number] [id number] *[id number] [phone] *[id number] [phone] *[id number] 13:05 Money360 BLANKET,WARM AIR CCL * Used *[id number] 13:05 Money360 PACK, CCL CUSTOM * Used *[id number] 13:05 TAPQUAD PACER PEN, SKIN DUAL W/ RULER * Used *[id number] 13:49 MEDTRONIC BALLOON, 2.5 X 20MM EUPHORA 20MM Used *[id number] [id number] 14:08 MEDTRONIC STENT, 3.0 30 INTEGRITY 3.0 30 Used *[id number] [id number] 14:15 MEDTRONIC STENT, 3.0 9 INTEGRITY 3.0 9 Used *[id number] 14:05 [employer] MEDICAL 30 DUSTIN INDEFLATOR Used *[id number] 14:27 [employer] MEDICAL SHEATH, FR6.5 PRELUDE 11CM FR 6.5 038ACT Used *[id number] [id number] 13:19 [employer] MEDICAL WIRE, EXCHANGE 260CM 3MMJ 260CM Used *[id number] 13:05 NAMIC MANIFOLD, 4 PORT * Used *[id number] 13:05 NYCOMED OMNIPAQUE, 350 MG, 150ML 150ML [id number] Used [id number] 13:05 TERUMO MEDICAL SHEATH, FR4 TERUMO (10CM) FR 4 Used *[id number] SHEATH, FR6 TRANSRADIAL [id number] 13:38 TERUMO MEDICAL FR 6 Used SLENDER 10CM *[id number] Equipment Model, Serial, Lot Number and Expiration Data Description Model Number Serial Number Lot Number Expiration Date STENT, 3.0 30 INTEGRITY [id number] 09-22-2019 STENT, 3.0 9 INTEGRITY [id number] 10-28-2019 History: Current Medications Medication Dosage/Unit Route Frequency Last Date/Time Taken Statins (any) Beta Jolly Glucophage NORVASC ASA Neurontin Glyburide History: Allergies Allergy Reaction Sulfa (Sulfonamide Antibiotics) RASH pseudoephedrine HYPERACTIVE triprolidine HYPERACTIVE History: Risk Factors Family History of Hypertension Dyslipidemia Previous [place] Previous Heart Failure Premature CAD Yes Yes Yes No No Prior Valve Prior PCI Prior CABG Surgery No No No Cerebrovascular Peripheral Artery Chronic Lung On Dialysis Diabetes Diabetes Therapy Disease Disease Disease No No No No Yes Oral History: Stress Tests Stress or Imaging Studies Performed Yes Standard Exercise Stress Test No Stress Echo No Stress Test SPECT Stress Test SPECT Result Stress Test SPECT Ischemia Risk/Extent Yes Positive Intermediate Stress Test CMR No Cardiac CTA Coronary Calcium Score No No History: Other Current Smoker Method Quit Packs a Day Years Used Pack Years No Cigarettes 43 Years Ago 1 20 20 Labs Hgb (g/dl) Hct (%) WBC (l/cumm) Platelets (thousands) 11.60-17.00 35.00-51.00 4.00-11.00 150.00-450.00 14.7 43 13.9 209 Glucose (mg/dl) BUN (mg/dl) Creatinine (mg/dl) BUN:Creatinine (1:x) 74.00-106.00 7.00-18.00 0.50-1.30 10.00-20.00 271 25 1.2 20.8 Na (meq/l) K (meq/l) 136.00-145.00 3.50-5.10 137 4.3 INR (PTT:PT) 0.90-1.10 1 Troponin I (ng/ml) CPK-MB (ng/ML) 0.02-0.05 0.50-3.60 0.02 Not Drawn Medication Medication Total Dose (Bolus/Oral) Medication Total Dosage/Unit 1% XYLOCAINE 20 mL AGGRASTAT BOLUS 47.6 mL ASPIRIN 81 mg EFFIENT 60 mg FENTANYL 25 mcg HEPARIN 6700 units OXYGEN 2 l/min VERSED 1 mg Medications (Bolus/Oral) Medication Time Given Dosage/Unit Administered By Reason VERSED 04/08/2018 1:33:33 PM 1 mg Leigh Chung 1 mg VERSED given in lab by Leigh Chung RN in Right Antecubital via Peripheral IV. Ordered by Prashant Morales. FENTANYL 04/08/2018 1:34:26 PM 25 mcg Fely Parra 25 mcg FENTANYL given in lab by Fely Parra RN in Right Antecubital via Peripheral IV. Ordered b y Prashant Chauhan. 1% XYLOCAINE 04/08/2018 1:37:08 PM 20 mL Prashant Chauhan 20 mL 1% XYLOCAINE given in lab by Prashant Chauhan in Right Groin via Subcutaneous. Ordered by Prashant Gutierres. HEPARIN 04/08/2018 1:46:06 PM 6700 units Leigh Chung 6700 units HEPARIN given in lab by Leigh Chung RN in Right Antecubital via Peripheral IV. Ordered by Prashant Chauhan. OXYGEN 04/08/2018 1:53:04 PM 2 l/min Leigh Chung 2 l/min OXYGEN given in lab by Leigh Chung RN via Nasal. Ordered by Prashant Chauhan. AGGRASTAT BOLUS 04/08/2018 2:25:53 PM 47.6 mL Leigh Chung 47.6 mL AGGRASTAT BOLUS given in lab by Leigh Chung RN in Right Antecubital via Peripheral IV. Or dered by Prashant Chauhan. ASPIRIN 04/08/2018 2:40:16 PM 81 mg Leigh Chung 81 mg ASPIRIN given in lab by Leigh Chung, INDRA via Oral. Ordered by Prashant Chauhan. EFFIENT 04/08/2018 2:40:30 PM 60 mg Leigh Chung 60 mg EFFIENT given in lab by Leigh Chung, INDRA via Oral. Ordered by Prashant Chauhan. Medication (Drip) Medication Time Given Dosage/Unit Concentration/Unit Diluent (ml) Solution AGGRASTAT DRIP 04/08/2018 2:27:10 PM 0.15 mcg/kg/min 12.5 mg 250 NaCl .9 0.15 mcg/kg/min AGGRASTAT DRIP given in lab by Leigh Chung RN in Right Antecubital via Peripheral IV. Pump/Drip Flow = 17.66 ml/hr using NaCl .9 with a concentration of 12.5 mg in 250 ml. Ordered by Prashant Chauhan. IV Solutions 04/08/2018 12:45:16 PM 0 mL (IV) 500 NaCl .9 IV Solutions given in lab by Leigh Chung RN in Right Antecubital via Peripheral IV. Pump/Drip Efren w = 20 ml/hr using NaCl .9. Ordered by Prashant Chauhan. NIPRIDE 04/08/2018 2:41:35 PM 1 mcg/kg/min 50 mg 250 D5W 1 mcg/kg/min NIPRIDE given in lab by Leigh Chung RN in Right Antecubital via Peripheral IV. Pump/ Drip Flow = 29.43 ml/hr using D5W with a concentration of 50 mg in 250 ml. Ordered by Prashant Chauhan. NIPRIDE 04/08/2018 2:59:24 PM 0.5 mcg/kg/min 50 mg 250 D5W 0.5 mcg/kg/min NIPRIDE lowered in lab by Leigh Chung RN in Right Antecubital via Peripheral IV. P ump/Drip Flow = 14.72 ml/hr using D5W with a concentration of 50 mg in 250 ml. Ordered by Prashant Chauhan. Drip lowered NIPRIDE 04/08/2018 3:02:31 PM 0.5 mcg/kg/min 50 mg 250 D5W 0.5 mcg/kg/min NIPRIDE discontinued in lab by Leigh Chung RN in Right Antecubital via Peripheral IV. Pump/Drip Flow = 14.72 ml/hr using D5W with a concentration of 50 mg in 250 ml. Ordered by Prashant Chauhan. Drip lowered Discontinued at 15:02. Initial Case Assessment Cardiovascular HR Rhythm NIBP Chest Pain 53 sb 160/78 0 Circulatory - Right Pulses Dorsalis Pedis Femoral 2 2 Scale (0,1,2,3,4,d) Circulatory - Left Pulses Dorsalis Pedis Femoral 2 2 Scale (0,1,2,3,4,d) Neurological State Oriented to time-place- Alert Moves all extremities person Respiration - General Respiration Rate SpO2 (%) (B/min) 20 94 Final Case Assessment Cardiovascular HR Rhythm NIBP Chest Pain 52 sb 139/65 1 Circulatory - Right Pulses Dorsalis Pedis Femoral 2 2 Scale (0,1,2,3,4,d) Circulatory - Left Pulses Dorsalis Pedis Femoral 2 2 Scale (0,1,2,3,4,d) Neurological State Oriented to time-place- Alert Moves all extremities person Respiration - General Respiration Rate SpO2 (%) O2 (lpm) (B/min) 20 90 2 Chronological Log Time Study Chronological Log 12:44:47 Patient arrived via Bed. 12:44:48 Patient Name, D.O.B, / Armband Verified By R.N. 12:44:49 Consent signed by the physician and the patient and verified by the Resource Analyst staff. 12:44:50 Pre-op and post- op instructions given; patient acknowledges understanding of instructions. 12:44:51 Verbal Stimulation=2 Physical Stimulation=2 Airway=2 Respiration=2 TOTAL=8. (0=absent, 1=li mited, 2=present) 12:45:10 A # 20 IV was noted in the Antecubital (right). Grade = 0 IV Solutions given in lab by Leigh Chung, RN in Right Antecubital via Peripheral IV. Pump/Dr ip Flow = 20 ml/hr using 12:45:16 NaCl .9. Ordered by Prashant Chauhan. Vitals capture started with the following parameters, Patient=Adult, Interval=5 min, Initial Pr mrkmcs=123 mmHg, 12:49:09 Deflation Rate=5 mmHg, Cuff placed on Left Arm 12:49:43 XK=312 bpm, JZAE=754/69 mmhg, SpO2=95.0 %, Resp=9 B/min 12:55:25 HR=56 bpm, OWNC=682/84 mmhg, SpO2=93.0 %, Resp=19 B/min 12:59:57 HR=54 bpm, ILEL=812/78 mmhg, SpO2=93.0 %, Resp=21 B/min 13:02:49 Presedation assessment performed by Resource Analyst RN. 13:02:55 Patient has been NPO for More than 6Hrs. 13:02:56 Skin Breakdown-bilateral groin rashes noted 13:03:01 Eric Prominences Protected 13:03:28 History and physical on the chart or being dictated. Assessment: Initial Case, HR=53 BPM, Rhythm=sb, HUOQ=003/78 mmhg, Chest Pain=0 Right Pulses: Adam Ped=2, Femoral=2 13:03:31 Left Pulses: Adam Ped=2, Femoral=2 Neurological: State=Alert, Ox3, DE [place] FUENT[place] Respiration: Resp=20 B/min, SpO2=94 % 13:04:15 Reference ECG taken 13:04:56 HR=54 bpm, SWXG=564/79 mmhg, SpO2=93.0 %, Resp=16 B/min 13:05:24 Bilateral groins prepped with 2% chlorhexidine, and draped after a 3 minute waiting time. 13:09:59 HR=55 bpm, HHCG=005/79 mmhg, SpO2=94.0 %, Resp=15 B/min 13:14:54 HR=55 bpm, MGLO=927/80 mmhg, SpO2=93.0 %, Resp=14 B/min 13:15:07 Pressure channel 2 zeroed. 13:15:35 paged 13:19:53 HR=56 bpm, ZLIW=275/86 mmhg, SpO2=97.0 %, Resp=14 B/min 13:24:58 HR=50 bpm, GRVX=208/79 mmhg, SpO2=95.0 %, Resp=13 B/min 13:30:00 HR=53 bpm, TFJR=068/79 mmhg, SpO2=95.0 %, Resp=12 B/min 13:33:33 1 mg VERSED given in lab by Leigh Chung, INDRA in Right Antecubital via Peripheral IV. Orde red by Prashant Chauhan. 13:34:10 arrived. 25 mcg FENTANYL given in lab by Fely Parra, INDRA in Right Antecubital via Peripheral IV. Ord ered by Tien, 13:34:26 Prashant. 13:34:57 HR=57 bpm, QWWQ=359/81 mmhg, SpO2=94.0 %, Resp=14 B/min Time Out. Correct patient, correct procedure, correct physician, labs, allergies, and equipment verified with field laboratory operator 13:36:36 team present. Fire risk assesment completed (see hard stop sheet for coding). Time Out Conc urred by MD and individual staff in procedure. 13:37:07 Case Start 20 mL 1% XYLOCAINE given in lab by Prashant Chauhan in Right Groin via Subcutaneous. Ordered by Tien, 13:37:08 Prashant. 13:37:49 Access site was Right Femoral Artery. 13:37:57 A SHEATH, FR4 TERUMO (10CM) FR 4 was advanced into the Fem Art (right) using the Percutaneo us technique. A JR 4.0 INFINITI CATHETER FR 4 was advanced over a wire. OMNIPAQUE, 350 MG, 150ML 150ML was us ed for 13:38:42 injections. 13:39:52 The LV was manually injected with 10 cc's and visualized. OMNIPAQUE, 350 MG, 150ML 150ML us ed. 13:39:58 HR=57 bpm, CVLW=546/81 mmhg, SpO2=91.0 %, Resp=18 B/min 13:40:28 The RCA was injected and visualized at various angles. OMNIPAQUE, 350 MG, 150ML 150ML used . Recorded Pressure: Ao, HR=62, Condition=Condition 1 13:40:45 (Aorta) Ao 150/68/99 13:41:45 Catheter was removed A JL 4.0 INFINITI CATHETER FR 4 was advanced over a wire. OMNIPAQUE, 350 MG, 150ML 150ML was us ed for 13:41:47 injections. 13:42:54 The LCA was injected and visualized at various angles. OMNIPAQUE, 350 MG, 150ML 150ML used . 13:44:57 HR=61 bpm, JAJW=368/71 mmhg, SpO2=92.0 %, Resp=22 B/min 13:45:15 Catheter was removed A SHEATH, FR6.5 PRELUDE 11CM FR 6.5 was exchanged in the Fem Art (right). This was necessary in order to 13:45:45 accomodate a larger catheter. 6700 units HEPARIN given in lab by Leigh Chung, RN in Right Antecubital via Peripheral IV. O rdered by Tien, 13:46:06 Prashant. A XB 3.5 GUIDE CATHETER FR 6 was advanced over a wire. OMNIPAQUE, 350 MG, 150ML 150ML was used for 13:47:16 injections. 13:50:00 HR=56 bpm, LBIH=631/72 mmhg, SpO2=90.0 %, Resp=13 B/min After removing the current catheter a XB 3.0 GUIDE CATHETER FR 6 was advanced over a WIRE, EXCH SEAN 260CM 13:51:29 3MMJ 260CM. 13:53:04 2 l/min OXYGEN given in lab by Leigh Chung RN via Nasal. Ordered by Prashant Chauhan. 13:53:21 A WIRE, ASAHI PROWATER 180CM 180CM was inserted via Fem Art (right). 13:54:57 HR=55 bpm, OWBA=063/74 mmhg, SpO2=90 %, Resp=14 B/min 13:57:00 Activated Clotting Time Drawn A BALLOON, 2.5 X 20MM EUPHORA 20MM was inserted over WIRE, ASAHI PROWATER 180CM 180CM via the F em Art 13:58:11 (right). 14:00:25 ACT (Normal Range 90-180) = 279 14:00:43 HR=51 bpm, LSJM=781/78 mmhg, SpO2=92.0 %, Resp=15 B/min, Pain=0, Tab=10, Hammond=2 A BALLOON, 2.5 X 20MM EUPHORA 20MM over a WIRE, ASAHI PROWATER 180CM 180CM in the LAD Mid was i nflated 14:04:38 using a 30 DUSTIN INDEFLATOR at 10 dustin for 10 sec. 14:05:01 HR=51 bpm, WFWB=988/75 mmhg, SpO2=94.0 %, Resp=15 B/min, Pain=0, Tab=10, Hammond=2 14:06:23 Balloon Removed. An STENT, 3.0 30 INTEGRITY 3.0 30 Bare Metal Stent was inserted through a XB 3.0 GUIDE CATHETER FR 6 over a 14:07:50 WIRE, ASAHI PROWATER 180CM 180CM. 14:10:00 HR=54 bpm, CEZL=058/75 mmhg, SpO2=94.0 %, Resp=11 B/min A STENT, 3.0 30 INTEGRITY 3.0 30 was deployed using a 30 DUSTIN INDEFLATOR at 12 atmospheres for 1 5 seconds in 14:10:18 the LAD Mid. 14:11:15 Delivery device removed An STENT, 3.0 9 INTEGRITY 3.0 9 Bare Metal Stent was inserted through a XB 3.0 GUIDE CATHETER F R 6 over a 14:15:07 WIRE, NAVX PROWATER 180CM 180CM. 14:15:36 HR=56 bpm, DKCD=795/82 mmhg, SpO2=93.0 %, Resp=12 B/min 14:20:02 HR=54 bpm, RAUW=132/79 mmhg, SpO2=95.0 %, Resp=23 B/min A STENT, 3.0 9 INTEGRITY 3.0 9 was deployed using a 30 DUSTIN INDEFLATOR at 12 atmospheres for 17 seconds in the 14:20:31 LAD Mid. 14:21:13 Delivery device removed 14:22:08 Wire removed 14:22:23 Catheter was removed 14:22:27 Case End (Physician broke scrub) 14:25:36 HR=64 bpm, UEMB=510/81 mmhg, SpO2=98.0 %, Resp=19 B/min, Pain=6 47.6 mL AGGRASTAT BOLUS given in lab by Leigh Chung RN in Right Antecubital via Peripheral IV. Ordered by 14:25:53 Prashant Chauhan. 14:26:30 In the Fem Art (right) the SHEATH, FR6.5 PRELUDE 11CM FR 6.[address] by Anne Marie Castro , RT(R) . 0.15 mcg/kg/min AGGRASTAT DRIP given in lab by Leigh Chung RN in Right Antecubital via Sarita pheral IV. 14:27:10 Pump/Drip Flow = 17.66 ml/hr using NaCl .9 with a concentration of 12.5 mg in 250 ml. Ordered b y Prashant Chauhan. 14:30:06 HR=67 bpm, AMQP=460/90 mmhg, SpO2=97.0 %, Resp=17 B/min 14:31:36 Patient has to void, urinal placed. 200ML output. 14:35:11 HR=89 bpm, TRPQ=571/80 mmhg, SpO2=96.0 %, Resp=22 B/min 14:40:08 LVDI=891/95 mmhg, SpO2=90.0 % 14:40:16 81 mg ASPIRIN given in lab by Leigh Chung RN via Oral. Ordered by Prashant Chauhan. 14:40:30 60 mg EFFIENT given in lab by Leigh Chung RN via Oral. Ordered by Prashant Chauhan. 14:40:37 A-LINE connected to 6fr Sheath in RFA. 1 mcg/kg/min NIPRIDE given in lab by Leigh Chung RN in Right Antecubital via Peripheral IV. Pump/Drip Flow = 14:41:35 29.43 ml/hr using D5W with a concentration of 50 mg in 250 ml. Ordered by Prashant Chauhan. 14:44:34 Vitals capture stopped. 14:44:46 Patient moved to bed 14:45:03 NIBP STAT measurement started. 14:45:13 Waiting for an [facility] [place] 14:45:46 SHHL=706/93 mmhg Vitals capture started with the following parameters, Patient=Adult, Interval=5 min, Initial Pr kvsgjz=726 mmHg, 14:49:59 Deflation Rate=5 mmHg, Cuff placed on Left Arm 14:51:28 KYWZ=274/74 mmhg 14:56:19 HR=8 bpm, OTPC=424/50 mmhg, Resp=0 B/min 0.5 mcg/kg/min NIPRIDE lowered in lab by Leigh Chung RN in Right Antecubital via Peripheral IV. Pump/Drip Flow 14:59:24 = 14.72 ml/hr using D5W with a concentration of 50 mg in 250 ml. Ordered by Prashant Chauhan. D rip lowered 15:00:03 NIBP STAT measurement started. 15:00:41 PPHM=549/54 mmhg 0.5 mcg/kg/min NIPRIDE discontinued in lab by Leigh Chung RN in Right Antecubital via Perip heral IV. Pump/Drip 15:02:31 Flow = 14.72 ml/hr using D5W with a concentration of 50 mg in 250 ml. Ordered by Prashant Chauhan. Drip lowered Discontinued at 04/08/2018 15:02. 15:06:15 HR=52 bpm, GJUI=380/66 mmhg, Resp=0 B/min Assessment: Final Case, HR=52 BPM, Rhythm=sb, UUZO=067/65 mmhg, Chest Pain=1 Right Pulses: Adam Ped=2, Femoral=2 15:09:37 Left Pulses: Adam Ped=2, Femoral=2 Neurological: State=Alert, Ox3, [place] F[place] Respiration: Resp=20 B/min, SpO2=90 %, O2=2 lpm 15:10:46 HR=0 bpm, WQGA=183/65 mmhg, Resp=0 B/min 15:15:47 HR=3 bpm, IGGP=967/59 mmhg, Resp=35 B/min 15:18:39 Patient transported to [facility] 15:20:12 Vitals capture stopped. End Study - Contrast Media Used In Study Contrast Total Opened (mL) Total Used (mL) Total Wasted (mL) Omnipaque 245 245 0 End Study - Maximum Contrast Load Max Contrast Load (mL) 408.7 End Study - Radiation Exposure Fluoro Time (minutes) 16.9 End Study - Patient Disposition Complications Transferred To Interventional Outcome No Critical Care Bed successful
--- NOTE | 2018-04-08 15:23 | MR ---
cc: Prashant Chauhan MD DATE: 04/08/2018 PROCEDURE PERFORMED: Left heart catheterization, left ventriculography, coronary angiography, PCI with bare metal stent of the mid to distal LAD and the mid LAD. DESCRIPTION OF PROCEDURE: The patient was brought to the cardiac catheterization laboratory, prepped and draped in the usual sterile fashion. Ten mL of 1% lidocaine was used to locally anesthetize the right common femoral artery. A 4-Prydeinig sheath was placed in right common femoral artery. A 4-Prydeinig JR4 and JL4 catheter was used to perform left and right coronary angiography and left ventriculography. FINDINGS: LV pressures were not obtained as the pressure recording device was not working at the time. EF is 55%. Right coronary artery is dominant and has no significant disease angiographically. Left main coronary artery is short. There is almost separate ostia of the LAD and left circumflex. Left main has no significant disease angiographically. There is a ramus intermedius vessel, which is a 2.5 mm vessel with no significant disease angiographically. The first obtuse marginal vessel comes off the mid AV groove. Left circumflex vessel is a small vessel, 2.0 mm in diameter. No focal stenosis. Second obtuse marginal vessel is a large vessel, 3.5 mm reference vessel diameter with no significant disease angiographically. The AV groove left circumflex vessel proximal to the second obtuse marginal vessel was a large 4.0 vessel with no significant disease angiographically. After the second obtuse marginal vessel, it is a small diminutive vessel with no significant disease angiographically. The LAD is a large transapical vessel that has a long 30 mm filling defect; however, the mid to distal LAD does perfuse with MEGHANA 2 flow and it is a transapical vessel. I recommended bypass to the patient. The patient refused. Therefore, the 6-Prydeinig sheath was exchanged for a 4-Prydeinig sheath and 70 units per kilo of heparin was given. ACT was 278. A 6-Prydeinig XB 3.0 guide was placed into the left main coronary artery. I was not able to cross the lesion with a 0.014 Prowater guidewire. I used a 2.5, 20 Euphora balloon for support and was ultimately able to deliver the wire to the distal LAD. I did 2 inflations at 10 atmospheres of 20 seconds. This resulted in MEGHANA 2-3 flow into the distal LAD. I then placed a 3.0, 30 Integrity stent in the mid to distal LAD. One inflation at 16 atmospheres for 20 seconds. Stenosis went from 100% with MEGHANA 2 flow to 0% with MEGHANA 3 flow. I then placed a 3.0, 9 Integrity stent just beyond the first diagonal artery because there was residual 80% stenosis there. Deployed with one inflation at 12 atmospheres for 15 seconds. The stenosis went from 80% to 0% with MEGHANA 3 flow. There is no compromise of the diagonal vessel. Flow was MEGHANA 3 into the diagonal vessel with no stenosis of the ostium. CONCLUSION: 1. Unstable angina at moderate risk myocardial perfusion study with culprit subtotally occluded mid LAD with MEGHANA 2 flow into the distal LAD, 80% stenosis of the LAD at the bifurcation with the first diagonal artery. Otherwise, no significant coronary artery disease in a right dominant system. 2. Normal left ventricular systolic function with ejection fraction of 55%. 3. Successful percutaneous coronary intervention with bare metal stent of the mid to distal LAD from 100% with MEGHANA 2 flow to 0% with MEGHANA 3 flow. 4. Successful PCI with bare metal stent of the proximal LAD at the bifurcation with the first diagonal artery from 80% to 0% with MEGHANA 3 flow. Note, there is a residual 50% stenosis just beyond the proximal mid LAD stent. 5. I recommend Prasugrel 60 mg p.o. bolus, then 10 mg daily for 12-15 months, aspirin 162 mg daily. Aggrastat drip per protocol. We will treat with beta blockers and YANELI inhibitors as clinically and hemodynamically tolerated. Treat lipids per NCEP guideline. I am also going to place the patient on Nipride, as he is having chest pain post-procedure, which is improving. I suspect that he may have had some distal embolization of organized thrombus. Also, his blood pressure increased from 150 baseline to 180 post-stenting of the LAD, so we will also need the Nipride for blood pressure control. MD NARESH Diamond/darlene , 02:31 PM , 02:44 PM
[2018-04-08] MEDS ORDERED: Iohexol 350 MG/ML 100 ML Vial (for Cath Lab) IVCONTRAST ONE (16:28)
[2018-04-08] MEDS ORDERED: Iohexol 350 MG/ML 50 ML Vial (for Cath Lab) IVCONTRAST ONE (16:28)
--- NOTE | 2018-04-08 16:41 | P.PNIM ---
Subjective Interval history: f/u for chest pain, s/p PCI, not SOB, no groin pain Physical Exam Vital signs: Vital Signs 04/07/18 20:00 04/07/18 20:03 04/08/18 00:00 Temperature 97.6 F 99.1 F Pulse Rate 58 L 56 L 64 Respiratory Rate 20 20 Blood Pressure 153/79 H 143/80 H Pulse Oximetry 93 L 97 04/08/18 04:00 04/08/18 08:00 04/08/18 09:00 Temperature 97.5 F L 98.4 F Pulse Rate 55 L 58 L 56 L Respiratory Rate 20 18 Blood Pressure 150/83 H 173/89 H Pulse Oximetry 95 93 L 04/08/18 10:00 04/08/18 11:00 04/08/18 12:00 Temperature 98.4 F Pulse Rate 62 51 L 58 L Respiratory Rate 18 Blood Pressure 172/79 H Pulse Oximetry 91 L Intake & Output 04/07/18 04/08/18 04/08/18 18:59 06:59 18:59 Intake Total 240 / 240 60 / 60 Output Total 700 / 700 Balance -460 / -460 60 / 60 Weight 98.1 kg Intake: Oral 240 / 240 60 / 60 Output: Urine 700 / 700 Other: # Voids 3 Date of Last Bowel Movement 03/07/18 Narrative: NOt in distress No JVD RRR, no murmurs Clear BS Abdomen soft R groin no hematoma No edema AAOx3, no focal deficits. Results - Labs CBC & Chem 7: 04/07/18 15:19 04/08/18 00:01 Laboratory Results - last 24 hr 04/07/18 04/08/18 04/08/18 20:16 00:01 00:01 Sodium 137 Potassium 4.3 Chloride 100 Carbon Dioxide 28.9 Anion Gap 8 BUN 25 H Creatinine 1.20 Estimated GFR 59 L POC Glucose 271 H Random Glucose 163 H D Calcium 8.2 L D Magnesium 2.0 Troponin I Less than 0.02 L B-Natriuretic Peptide 90 04/08/18 04/08/18 07:01 08:44 Sodium Potassium Chloride Carbon Dioxide Anion Gap BUN Creatinine Estimated GFR POC Glucose 192 H 171 H Random Glucose Calcium Magnesium Troponin I B-Natriuretic Peptide - Procedures Cardiac catheterization 04/08: 1. Unstable angina at moderate risk myocardial perfusion study with culprit subtotally occluded mid LAD with MEGHANA 2 flow into the distal LAD, 80% stenosis of the LAD at the bifurcation with the first diagonal artery. Otherwise, no significant coronary artery disease in a right dominant system. 2. Normal left ventricular systolic function with ejection fraction of 55%. 3. Successful percutaneous coronary intervention with bare metal stent of the mid to distal LAD from 100% with MEGHANA 2 flow to 0% with MEGHANA 3 flow. 4. Successful PCI with bare metal stent of the proximal LAD at the bifurcation with the first diagonal artery from 80% to 0% with MEGHANA 3 flow. Note, there is a residual 50% stenosis just beyond the proximal mid LAD stent. 5. I recommend Prasugrel 60 mg p.o. bolus, then 10 mg daily for 12-15 months, aspirin 162 mg daily. Aggrastat drip per protocol. We will treat with beta blockers and YANELI inhibitors as clinically and hemodynamically tolerated. Treat lipids per NCEP guideline. I am also going to place the patient on Nipride, as he is having chest pain post-procedure, which is improving. I suspect that he may have had some distal embolization of organized thrombus. Also, his blood pressure increased from 150 baseline to 180 post-stenting of the LAD, so we will also need the Nipride for blood pressure control. Assessment and Plan - Assessment (1) Chest pain Code(s): R07.9 - Chest pain, unspecified Status: Acute - Plan This is a 77/M who presented with Chest pain - ACSLS ruled out, however, nuclear stress test positive,Myocardial perfusion study was performed and indicated moderate size reversible perfusion defect in the apical wall without associated focal wall motion, intermediate risk. Patient transferred to the [facility], [employer] done s/p stenting of LAD. -Cont ASA, Atenolol, statin, start lisinopril and prasugrel. Currently on Nipride, goal SBP 110s. Hypertension, hyperlipidemia - cont norvasc, also on atenolol Diabetes -Accu-Cheks with sliding scale insulin Chronic back pain, peripheral neuropathy -Home medications have been continued Cardiac diet DVT prevention -Sequential compression devices. D/C at am if ok with cardiology
--- NOTE | 2018-04-08 16:44 | ECG ---
Date Performed: 04/06/2018 Time Performed: 23:50:59 PTAGE: 77 years EKG: Sinus rhythm NONSPECIFIC T-WAVE ABNORMALITY Since previous tracing, no significant change noted BORDERLINE ECG PREVIOUS TRACING : 04/06/2018 20.53 DOCTOR: Damian Rizo Interpretating Date/Time 04/08/2018 16:40:48
--- NOTE | 2018-04-08 20:08 | P.CODE44 ---
Code 44 - Inpatient to Obs - Code 44 - Inpatient to Obs Statement: A clinical review of the case has been conducted by a member of the Utilization Review Committee. The findings indicate the patient meets criteria for observation status. The information and decision has been discussed with the attending physician Jazz Johnson DO and physician provider Lamine Zazueta MD.
[2018-04-09 04:19] LABS: Baso % (Auto) 0.4 % (0.0-2.0); Eos # (Auto) 0.2 th/mm3 (0.0-0.4); Eos % (Auto) 1.3 % (0.0-4.0); Hematocrit 38.6 % (39.0-51.0); Hemoglobin 13.1 gm/dL (13.0-17.0); Lymph # (Auto) 1.7 th/mm3 (1.0-4.8); Lymph % (Auto) 14.8 % (9.0-44.0); Mean Corpuscular HGB Conc 34.1 % (32.0-36.0); Mean Corpuscular Hemoglobin 28.7 pg (27.0-34.0); Mean Corpuscular Volume 84.2 fL (80.0-100.0); Mean Platelet Volume 8.4 fL (7.0-11.0); Mono # (Auto) 1.2 th/mm3 (0.0-0.9); Mono % (Auto) 10.1 % (0.0-8.0); Neut # (Auto) 8.7 th/mm3 (1.8-7.7); Neut % (Auto) 73.4 % (16.0-70.0); Platelet Count 173 th/mm3 (150-450); Red Blood Count 4.58 mil/mm3 (4.50-5.90); Red Cell Distribution Width 15.3 % (11.6-17.2); White Blood Count 11.8 th/mm3 (4.0-11.0)
[2018-04-09 04:44] LABS: Albumin 3.1 g/dL (3.4-5.0); Calcium 8.2 mg/dL (8.5-10.1); Carbon Dioxide 28.6 meq/L (21.0-32.0); Potassium 3.8 meq/L (3.5-5.1)
[2018-04-09 04:48] LABS: Chol/HDL Ratio 2.45 Ratio; HDL Cholesterol 46.4 mg/dL (40.0-60.0); Total Protein 6.4 g/dL (6.4-8.2)
--- NOTE | 2018-04-09 08:23 | P.PNCA ---
Subjective Interval history: assymptomatic in nad Medications and Allergies Active Medications: Active Medications Acetaminophen (Tylenol) 500 mg PO Q4H PRN PRN Reason: Headache, fever, pain 1-4 Amlodipine Besylate (Norvasc) 5 mg PO DAILY [facility] Last Admin: 04/08/18 08:45 Dose: 5 mg Aspirin (Aspirin Chew) 162 mg PO DAILY [facility] Atenolol (Tenormin) 100 mg PO DAILY [facility] Atorvastatin Calcium (Lipitor) 80 mg PO DAILY [facility] Last Admin: 04/08/18 08:45 Dose: 80 mg Dextrose (D50w Vial) 50 ml IV.PUSH UNSCH PRN PRN Reason: PER HYPOGLYCEMIA PROTOCOL Gabapentin (Neurontin) 600 mg PO DAILY [facility] Last Admin: 04/08/18 08:45 Dose: 600 mg Gabapentin (Neurontin) 1,800 mg PO HS [facility] Last Admin: 04/08/18 21:17 Dose: 1,800 mg Glucagon (Glucagon Inj) 1 mg OTHER PRN PRN PRN Reason: for Hypoglycemia Protocol Tirofiban/Sodium Chloride (Aggrastat Inj) 12,500 mcg in 250 mls @ 0 mls/hr IV.CONT .Q0M [facility]; Protocol Sodium Nitroprusside 50 mg/ (Dextrose) 250 mls @ 14.71 mls/hr IV.CONT TITRATE PRN; Protocol PRN Reason: Per Protocol Last Titration: 04/09/18 07:38 Dose: 0.5 mcg/kg/min, 14.71 mls/hr Insulin Aspart (Novolog Insulin Correctional Sugar Inj) 0 unit SQ ACHS [facility]; Protocol Last Admin: 04/08/18 21:17 Dose: 3 unit Levothyroxine Sodium (Synthroid) 25 mcg PO DAILY@0600 [facility] Last Admin: 04/09/18 05:53 Dose: 25 mcg Nitroglycerin (Nitrostat Sl) 0.4 mg SL Q5M PRN PRN Reason: CHEST PAIN Ondansetron HCl (Zofran Inj) 4 mg IV.PUSH Q6H PRN PRN Reason: NAUSEA Oxycodone HCl (Roxicodone) 10 mg PO TID [facility] Last Admin: 04/08/18 17:33 Dose: Not Given Oxycodone HCl (Roxicodone) 20 mg PO HS [facility] Last Admin: 04/08/18 21:16 Dose: 20 mg Prasugrel (Effient) 10 mg PO DAILY [facility] Ramipril (Altace) 5 mg PO DAILY [facility] Sodium Chloride (Ns Flush) 2 ml IV.FLUSH BID [facility] Last Admin: 04/08/18 21:16 Dose: 2 ml Sodium Chloride (Ns Flush) 2 ml IV.FLUSH PRN PRN PRN Reason: FLUSH AFTER USING IV ACCESS Allergies Allergy/AdvReac Type Severity Reaction Status Date / Time Sulfa (Sulfonamide Allergy Severe RASH Verified 04/06/18 18:00 Antibiotics) triprolidine Allergy Intermediate HYPERACTIVE Verified 04/06/18 18:00 pseudoephedrine Allergy Mild HYPERACTIVE Verified 04/06/18 18:00 Home Medications Medication Instructions Recorded Confirmed Type amlodipine 5 mg PO DAILY 04/06/18 04/06/18 History aspirin [Aspir-Low] 81 mg PO DAILY 04/06/18 04/06/18 History atenolol 150 mg PO DAILY 04/06/18 04/06/18 History atorvastatin 80 mg PO DAILY 04/06/18 04/06/18 History gabapentin 1,800 mg PO HS 04/06/18 04/06/18 History gabapentin 600 mg PO DAILY 04/06/18 04/06/18 History glyburide 5 mg PO DAILY 04/06/18 04/06/18 History levothyroxine [Synthroid] 25 mcg PO DAILY 04/06/18 04/06/18 History metformin 1,200 mg PO BID 04/06/18 04/06/18 History oxycodone 10 mg PO TID 04/06/18 04/06/18 History oxycodone 20 mg PO HS 04/06/18 04/06/18 History sitagliptin [Januvia] 50 mg PO DAILY 04/06/18 04/06/18 History Physical Exam Vital signs: Vital Signs 04/08/18 09:00 04/08/18 10:00 04/08/18 11:00 Temperature Pulse Rate 56 L 62 51 L Respiratory Rate Blood Pressure Pulse Oximetry 04/08/18 12:00 04/08/18 16:00 04/08/18 17:00 Temperature 98.4 F Pulse Rate 58 L 65 58 L Respiratory Rate 18 17 Blood Pressure 172/79 H Pulse Oximetry 91 L 96 04/08/18 17:09 04/08/18 17:15 04/08/18 17:18 Temperature Pulse Rate 49 L 47 L 49 L Respiratory Rate 18 20 Blood Pressure 110/66 126/66 134/67 Pulse Oximetry 94 L 94 L 93 L 04/08/18 17:21 04/08/18 17:24 04/08/18 17:28 Temperature Pulse Rate 49 L 49 L 48 L Respiratory Rate 17 33 H 22 Blood Pressure 130/65 111/68 151/70 H Pulse Oximetry 95 94 L 94 L 04/08/18 17:30 04/08/18 17:34 04/08/18 17:37 Temperature Pulse Rate 49 L 52 L 49 L Respiratory Rate 28 H 20 21 Blood Pressure 133/65 142/63 H 141/69 H Pulse Oximetry 96 93 L 91 L 04/08/18 17:39 04/08/18 17:42 04/08/18 17:45 Temperature Pulse Rate 48 L 47 L 48 L Respiratory Rate 22 28 H 27 H Blood Pressure 132/60 133/67 144/68 H Pulse Oximetry 93 L 95 94 L 04/08/18 17:48 04/08/18 17:51 04/08/18 17:54 Temperature Pulse Rate 49 L 45 L 48 L Respiratory Rate 28 H 16 23 Blood Pressure 146/64 H 123/63 118/65 Pulse Oximetry 94 L 94 L 96 04/08/18 17:57 04/08/18 18:00 04/08/18 18:01 Temperature Pulse Rate 46 L 45 L 45 L Respiratory Rate 17 20 16 Blood Pressure 133/70 111/67 Pulse Oximetry 97 95 97 04/08/18 18:03 04/08/18 18:06 04/08/18 18:09 Temperature Pulse Rate 46 L 44 L 46 L Respiratory Rate 12 16 20 Blood Pressure 117/70 131/71 132/72 Pulse Oximetry 96 96 94 L 04/08/18 18:12 04/08/18 18:15 04/08/18 18:21 Temperature Pulse Rate 46 L 47 L 50 L Respiratory Rate 22 13 31 H Blood Pressure 136/69 135/68 181/80 H Pulse Oximetry 93 L 95 95 04/08/18 18:33 04/08/18 18:46 04/08/18 19:00 Temperature Pulse Rate 49 L 53 L 50 L Respiratory Rate 21 32 H 18 Blood Pressure 137/63 132/53 L 94/50 L Pulse Oximetry 92 L 93 L 94 L 04/08/18 19:19 04/08/18 19:30 04/08/18 19:45 Temperature Pulse Rate 48 L 51 L 45 L Respiratory Rate 22 23 14 Blood Pressure 116/63 96/54 L 134/70 Pulse Oximetry 95 93 L 93 L 04/08/18 20:00 04/08/18 20:01 04/08/18 20:16 Temperature 97.9 F Pulse Rate 51 L 48 L 50 L Respiratory Rate 32 H 32 H 16 Blood Pressure 159/74 H 105/55 L Pulse Oximetry 95 94 L 93 L 04/08/18 20:30 04/08/18 20:45 04/08/18 21:00 Temperature Pulse Rate 49 L 48 L 51 L Respiratory Rate 15 21 19 Blood Pressure 99/57 L 106/56 L 107/58 L Pulse Oximetry 92 L 96 94 L 04/08/18 21:15 04/08/18 21:30 04/08/18 21:45 Temperature Pulse Rate 51 L 48 L 50 L Respiratory Rate 30 H 22 22 Blood Pressure 106/65 115/66 104/60 Pulse Oximetry 95 94 L 94 L 04/08/18 22:00 04/08/18 22:15 04/08/18 22:30 Temperature Pulse Rate 49 L 47 L 47 L Respiratory Rate 17 13 15 Blood Pressure 117/63 100/58 L 108/58 L Pulse Oximetry 93 L 92 L 91 L 04/08/18 22:45 04/08/18 23:00 04/08/18 23:01 Temperature Pulse Rate 51 L 48 L 47 L Respiratory Rate 35 H 18 17 Blood Pressure 114/58 L 105/58 L Pulse Oximetry 93 L 92 L 90 L 04/08/18 23:15 04/08/18 23:30 04/08/18 23:46 Temperature Pulse Rate 46 L 50 L 46 L Respiratory Rate 18 31 H 22 Blood Pressure 90/54 L 93/58 L 104/56 L Pulse Oximetry 93 L 91 L 90 L 04/09/18 00:00 04/09/18 00:28 04/09/18 00:30 Temperature 98.7 F Pulse Rate 47 L 57 L 55 L Respiratory Rate 16 39 H 44 H Blood Pressure 97/55 L 118/68 133/60 Pulse Oximetry 91 L 93 L 92 L 04/09/18 00:45 04/09/18 01:00 11/10/18 01:15 Temperature Pulse Rate 47 L 48 L 47 L Respiratory Rate 25 H 18 16 Blood Pressure 111/55 L 112/59 L 100/57 L Pulse Oximetry 91 L 91 L 92 L 04/09/18 01:30 04/09/18 01:46 04/09/18 02:00 Temperature Pulse Rate 50 L 48 L 44 L Respiratory Rate 13 16 16 Blood Pressure 99/53 L 121/58 L 103/54 L Pulse Oximetry 89 L 91 L 89 L 04/09/18 02:31 04/09/18 02:45 04/09/18 03:00 Temperature Pulse Rate 45 L 44 L 44 L Respiratory Rate 16 12 11 L Blood Pressure 113/59 L 124/61 Pulse Oximetry 87 L 93 L 93 L 04/09/18 03:16 04/09/18 03:30 04/09/18 03:46 Temperature Pulse Rate 44 L 44 L 42 L Respiratory Rate 11 L 12 14 Blood Pressure 111/59 L 114/57 L 122/60 Pulse Oximetry 94 L 94 L 96 04/09/18 04:00 04/09/18 04:15 04/09/18 04:30 Temperature 97.9 F Pulse Rate 44 L 44 L 44 L Respiratory Rate 12 12 12 Blood Pressure 119/61 110/58 L 121/62 Pulse Oximetry 94 L 95 95 04/09/18 04:45 04/09/18 05:00 04/09/18 05:22 Temperature Pulse Rate 45 L 44 L 47 L Respiratory Rate 13 12 20 Blood Pressure 116/60 118/56 L 153/68 H Pulse Oximetry 94 L 94 L 80 L 04/09/18 05:31 04/09/18 05:46 04/09/18 06:00 Temperature Pulse Rate 42 L 43 L 44 L Respiratory Rate 12 14 14 Blood Pressure 128/60 132/58 L Pulse Oximetry 94 L 96 97 04/09/18 06:01 04/09/18 06:14 04/09/18 06:15 Temperature Pulse Rate 44 L 43 L Respiratory Rate 12 13 Blood Pressure 121/63 136/63 Pulse Oximetry 96 95 Intake & Output 04/08/18 04/09/18 04/09/18 18:59 06:59 18:59 Intake Total 570 / 570 Output Total 600 / 600 250 / 250 Balance -600 / -600 320 / 320 Weight 97.5 kg Intake: IV 250 / 250 Aggrastat Inj 12,500 mcg In 250 250 / 250 ml @ 0 mls/hr .ROUTE .[employer] Rx#:[id number] Oral 320 / 320 Output: Urine 600 / 600 250 / 250 Other: # Voids 1 Date of Last Bowel Movement 03/07/18 03/07/18 # Bowel Movements 2 - Constitutional no acute distress - Routine HEENT Exam Head: Present: normocephalic - Routine Neck Exam Present: supple - Routine Respiratory Exam Present: CTA bilaterally - Routine Cardiovascular Exam Present: S1, S2 - Routine Abdominal Exam Present: soft - Routine Exam Comments: no michi Results 04/09/18 03:44 04/09/18 03:44 Cardiac Enzymes 04/08/18 04/08/18 04/09/18 Range/Units 00:01 00:01 03:44 AST 25 (15-37) U/L Troponin I Less than 0.02 L (0.02-0.05) ng/mL B-Natriuretic Peptide 90 (0-100) pg/mL Coagulation 04/08/18 Range/Units 00:01 B-Natriuretic Peptide 90 (0-100) pg/mL Lipids 04/07/18 04/09/18 Range/Units 13:10 03:44 Triglycerides 156 H 193 H (42-150) mg/dL Cholesterol 115 L 114 L (120-200) mg/dL HDL Cholesterol 54.5 46.4 (40.0-60.0) mg/dL Cholesterol/HDL Ratio 2.11 2.45 Ratio CBC 04/07/18 04/09/18 Range/Units 15:19 03:44 WBC 13.9 H 11.8 H (4.0-11.0) th/mm3 RBC 5.17 4.58 (4.50-5.90) mil/mm3 Hgb 14.7 13.1 (13.0-17.0) gm/dL Hct 43.7 38.6 L (39.0-51.0) % Plt Count 209 173 (150-450) th/mm3 Neut # (Auto) 8.7 H (1.8-7.7) th/mm3 Lymph # (Auto) 1.7 (1.0-4.8) th/mm3 Lamb # (Auto) 1.2 H (0.0-0.9) th/mm3 Eos # (Auto) 0.2 (0.0-0.4) th/mm3 Baso # (Auto) 0.0 (0.0-0.2) th/mm3 Comprehensive Metabolic Panel 04/08/18 04/09/18 Range/Units 00:01 03:44 Sodium 137 139 (136-145) meq/L Potassium 4.3 3.8 (3.5-5.1) meq/L Chloride 100 101 (98-107) meq/L Carbon Dioxide 28.9 28.6 (21.0-32.0) meq/L BUN 25 H 23 H (7-18) mg/dL Creatinine 1.20 1.22 (0.60-1.30) mg/dL Calcium 8.2 L D 8.2 L (8.5-10.1) mg/dL Direct Bilirubin 0.2 (0.0-0.2) mg/dL Indirect Bilirubin 0.4 (0.0-0.8) mg/dL AST 25 (15-37) U/L ALT 24 (12-78) U/L Alkaline Phosphatase 91 (45-117) U/L Total Protein 6.4 D (6.4-8.2) g/dL Albumin 3.1 L (3.4-5.0) g/dL Intake and Output 04/08/18 04/09/18 04/09/18 22:59 06:59 14:59 Intake Total 570 / 570 Output Total 600 / 600 250 / 250 Balance -600 / -600 320 / 320 Intake: IV 250 / 250 Aggrastat Inj 12,500 mcg In 250 250 / 250 ml @ 0 mls/hr [id number] Oral 320 / 320 Output: Urine 600 / 600 250 / 250 Other: # Voids 1 Date of Last Bowel Movement 03/07/18 03/07/18 # Bowel Movements 2 Weight 99.5 kg 97.5 kg - Imaging and Cardiology Imaging: Impressions Myocardial Perfusion Scan Nuc Med 04/07/18 00:00 CONCLUSION: Moderate-sized reversible perfusion defect of the apical wall without associated focal wall motion abnormality. Finding indicates possible ischemic segment. Assessment and Plan - Assessment (1) Unstable angina Code(s): I20.0 - Unstable angina Status: Acute (2) CAD (coronary artery disease) Code(s): I25.10 - Atherosclerotic heart disease of [place] coronary artery without angina pectoris Status: Acute (3) Diabetes mellitus Code(s): E11.9 - Type 2 diabetes mellitus without complications Status: Acute (4) HTN (hypertension) Code(s): I10 - Essential (primary) hypertension Status: Acute (5) Bradycardia Code(s): R00.1 - Bradycardia, unspecified Status: Acute - Plan 1.) CAD - pod # 1 pci bms x 2 lad, assymptomatic, ok to dc from cv standpoint, prefer effient 10 mg qd, but patient thinks he can not afford; i explained to him he could have a life threatening stent thrombosis if he is noncompl;iant with aspirin and effient or plavix, he understands and states he will be compliant; continue lipitor, decrease atenolol to 100 mg qd due to bradycardia and increase altace to 2.5 mg qd, d/w nurse; patient instructed to fill plavix 75 mg qd rx if he cant afford effient, although i prefer effient due to heavy clot burden which i explained to him, he understand; i instructed him to call my office [facility] to make appointment
[2018-04-09] MEDS ORDERED: Atenolol 100 MG Tablet PO SCH (09:00)
[2018-04-09] MEDS ORDERED: Ramipril 2.5 MG Capsule PO SCH (09:00)
[2018-04-09] MEDS ORDERED: Ramipril 5 MG Capsule PO SCH (09:00)
[2018-04-09] MEDS: Insulin NovoLOG Aspart Correctional Sugar Inj SQ SCH ×2 (09:48→12:13)
[2018-04-09] MEDS: Gabapentin 300 MG Capsule PO SCH (09:51)
[2018-04-09] MEDS: amLODIPine 5 MG Tablet PO SCH (09:52)
[2018-04-09] MEDS ORDERED: hydrALAZINE HCl Inj 20 MG/ML Vial IV.PUSH ONE (10:37)
--- NOTE | 2018-04-09 10:43 | P.DS ---
Date of admission: 04/07/18 12:34 Primary care physician: Ryan López DO Brief History from admission: 77-year-old male with known history of hypertension, hyperlipidemia, diabetes, chronic back pain, peripheral neuropathy who presented to the hospital because of chest discomfort. 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 Patient states that he went to sleep and was woke up because of chest pain located in the middle part of his chest at approximately 5:30 AM. Patient states that it was a 3/10 on a pain scale which she describes as a burning type sensation. Lasted for approximately 10 minutes and went away on its own. Patient states that the pain did return approximately 3-4 times during the day which prompted him to come to the emergency department. Patient states that he is had this type of discomfort in the back in usually related to gastric reflux. He usually takes Gaviscon with relief. However he did not take any during this episode. Patient denies any radiation to his back, neck, shoulder, arm. Denied any nausea, vomiting, diaphoresis, shortness of breath, dyspnea, lightheadedness, dizziness. Patient has never been seen by a accounting officer and is never had any cardiac workup to include stress testing. Because of the patient's increased risk factors and presentation it was recommended that the patient be observed in the chest pain center for further evaluation and management. DS: Diagnosis - Discharge Diagnosis (1) Chest pain Status: Acute (2) Unstable angina Status: Acute (3) CAD (coronary artery disease) Status: Acute (4) Diabetes mellitus Status: Acute (5) HTN (hypertension) Status: Acute (6) Bradycardia Status: Acute DS: Medications - Discharge Medications Prescriptions: atenolol 100 mg PO DAILY #30 tab clopidogrel [Plavix] 1 mg/kg PO DAILY #30 tab nitroglycerin [Nitrostat] 0.4 mg SUBLINGUAL Q5M PRN #30 tab PRN Reason: Chest Pain prasugrel [Effient] 10 mg PO DAILY #30 tab ramipril 5 mg PO DAILY #30 cap DS: Summary Hospital Course: This is a 77/M who presented with Chest pain ACSLS ruled out, however, nuclear stress test positive. Myocardial perfusion study was performed and indicated moderate size reversible perfusion defect in the apical wall without associated focal wall motion, intermediate risk. Patient transferred to the [facility] done s/p stenting of LAD. -Cont ASA, decreased Atenolol as noted with bradycardia, continue statin. Increased ramipril to 5 mg daily. Continue prasugrel. If patient can;t afford prasugrel can have plavix instead. Patinet and at bedside expressed understanding. Off Nipride. Cleared by cardiology for DC to follow up as OP with PCP and consultants. Hypertension, hyperlipidemia, as above. Cxmtqaly-Nlia-Ijtox with sliding scale insulin Chronic back pain, peripheral neuropathy-Home medications have been continued Improved , DC home in stable condition to follow up as OP with PCP and consultants. - Time Spent with Patient Total time spent providing and/or coordinating discharge services: Greater than 30 minutes - Quality: VTE Deep Vein Thrombosis/Pulmonary Embolism Present on Admission: No Exam Vital signs: Vital Signs 04/08/18 11:00 04/08/18 12:00 04/08/18 16:00 Temperature 98.4 F Pulse Rate 51 L 58 L 65 Respiratory Rate 18 Blood Pressure 172/79 H Pulse Oximetry 91 L 04/08/18 17:00 04/08/18 17:09 04/08/18 17:15 Temperature Pulse Rate 58 L 49 L 47 L Respiratory Rate 17 18 Blood Pressure 110/66 126/66 Pulse Oximetry 96 94 L 94 L 04/08/18 17:18 04/08/18 17:21 04/08/18 17:24 Temperature Pulse Rate 49 L 49 L 49 L Respiratory Rate 20 17 33 H Blood Pressure 134/67 130/65 111/68 Pulse Oximetry 93 L 95 94 L 04/08/18 17:28 04/08/18 17:30 04/08/18 17:34 Temperature Pulse Rate 48 L 49 L 52 L Respiratory Rate 22 28 H 20 Blood Pressure 151/70 H 133/65 142/63 H Pulse Oximetry 94 L 96 93 L 04/08/18 17:37 04/08/18 17:39 04/08/18 17:42 Temperature Pulse Rate 49 L 48 L 47 L Respiratory Rate 21 22 28 H Blood Pressure 141/69 H 132/60 133/67 Pulse Oximetry 91 L 93 L 95 04/08/18 17:45 04/08/18 17:48 04/08/18 17:51 Temperature Pulse Rate 48 L 49 L 45 L Respiratory Rate 27 H 28 H 16 Blood Pressure 144/68 H 146/64 H 123/63 Pulse Oximetry 94 L 94 L 94 L 04/08/18 17:54 04/08/18 17:57 04/08/18 18:00 Temperature Pulse Rate 48 L 46 L 45 L Respiratory Rate 23 17 20 Blood Pressure 118/65 133/70 Pulse Oximetry 96 97 95 04/08/18 18:01 04/08/18 18:03 04/08/18 18:06 Temperature Pulse Rate 45 L 46 L 44 L Respiratory Rate 16 12 16 Blood Pressure 111/67 117/70 131/71 Pulse Oximetry 97 96 96 04/08/18 18:09 04/08/18 18:12 04/08/18 18:15 Temperature Pulse Rate 46 L 46 L 47 L Respiratory Rate 20 22 13 Blood Pressure 132/72 136/69 135/68 Pulse Oximetry 94 L 93 L 95 04/08/18 18:21 04/08/18 18:33 04/08/18 18:46 Temperature Pulse Rate 50 L 49 L 53 L Respiratory Rate 31 H 21 32 H Blood Pressure 181/80 H 137/63 132/53 L Pulse Oximetry 95 92 L 93 L 04/08/18 19:00 04/08/18 19:19 04/08/18 19:30 Temperature Pulse Rate 50 L 48 L 51 L Respiratory Rate 18 22 23 Blood Pressure 94/50 L 116/63 96/54 L Pulse Oximetry 94 L 95 93 L 04/08/18 19:45 04/08/18 20:00 04/08/18 20:01 Temperature 97.9 F Pulse Rate 45 L 51 L 48 L Respiratory Rate 14 32 H 32 H Blood Pressure 134/70 159/74 H Pulse Oximetry 93 L 95 94 L 04/08/18 20:16 04/08/18 20:30 04/08/18 20:45 Temperature Pulse Rate 50 L 49 L 48 L Respiratory Rate 16 15 21 Blood Pressure 105/55 L 99/57 L 106/56 L Pulse Oximetry 93 L 92 L 96 04/08/18 21:00 04/08/18 21:15 04/08/18 21:30 Temperature Pulse Rate 51 L 51 L 48 L Respiratory Rate 19 30 H 22 Blood Pressure 107/58 L 106/65 115/66 Pulse Oximetry 94 L 95 94 L 04/08/18 21:45 04/08/18 22:00 04/08/18 22:15 Temperature Pulse Rate 50 L 49 L 47 L Respiratory Rate 22 17 13 Blood Pressure 104/60 117/63 100/58 L Pulse Oximetry 94 L 93 L 92 L 04/08/18 22:30 04/08/18 22:45 04/08/18 23:00 Temperature Pulse Rate 47 L 51 L 48 L Respiratory Rate 15 35 H 18 Blood Pressure 108/58 L 114/58 L Pulse Oximetry 91 L 93 L 92 L 04/08/18 23:01 04/08/18 23:15 04/08/18 23:30 Temperature Pulse Rate 47 L 46 L 50 L Respiratory Rate 17 18 31 H Blood Pressure 105/58 L 90/54 L 93/58 L Pulse Oximetry 90 L 93 L 91 L 04/08/18 23:46 04/09/18 00:00 04/09/18 00:28 Temperature 98.7 F Pulse Rate 46 L 47 L 57 L Respiratory Rate 22 16 39 H Blood Pressure 104/56 L 97/55 L 118/68 Pulse Oximetry 90 L 91 L 93 L 04/09/18 00:30 04/09/18 00:45 04/09/18 01:00 Temperature Pulse Rate 55 L 47 L 48 L Respiratory Rate 44 H 25 H 18 Blood Pressure 133/60 111/55 L 112/59 L Pulse Oximetry 92 L 91 L 91 L 04/09/18 01:15 04/09/18 01:30 04/09/18 01:46 Temperature Pulse Rate 47 L 50 L 48 L Respiratory Rate 16 13 16 Blood Pressure 100/57 L 99/53 L 121/58 L Pulse Oximetry 92 L 89 L 91 L 04/09/18 02:00 04/09/18 02:31 04/09/18 02:45 Temperature Pulse Rate 44 L 45 L 44 L Respiratory Rate 16 16 12 Blood Pressure 103/54 L 113/59 L 124/61 Pulse Oximetry 89 L 87 L 93 L 04/09/18 03:00 04/09/18 03:16 04/09/18 03:30 Temperature Pulse Rate 44 L 44 L 44 L Respiratory Rate 11 L 11 L 12 Blood Pressure 111/59 L 114/57 L Pulse Oximetry 93 L 94 L 94 L 04/09/18 03:46 04/09/18 04:00 04/09/18 04:15 Temperature 97.9 F Pulse Rate 42 L 44 L 44 L Respiratory Rate 14 12 12 Blood Pressure 122/60 119/61 110/58 L Pulse Oximetry 96 94 L 95 04/09/18 04:30 04/09/18 04:45 04/09/18 05:00 Temperature Pulse Rate 44 L 45 L 44 L Respiratory Rate 12 13 12 Blood Pressure 121/62 116/60 118/56 L Pulse Oximetry 95 94 L 94 L 04/09/18 05:22 04/09/18 05:31 04/09/18 05:46 Temperature Pulse Rate 47 L 42 L 43 L Respiratory Rate 20 12 14 Blood Pressure 153/68 H 128/60 132/58 L Pulse Oximetry 80 L 94 L 96 04/09/18 06:00 04/09/18 06:01 04/09/18 06:14 Temperature Pulse Rate 44 L 44 L 43 L Respiratory Rate 14 12 13 Blood Pressure 121/63 Pulse Oximetry 97 96 95 04/09/18 06:15 Temperature Pulse Rate Respiratory Rate Blood Pressure 136/63 Pulse Oximetry Intake & Output 04/08/18 04/09/18 04/09/18 18:59 06:59 18:59 Intake Total 570 / 570 265 / 265 Output Total 600 / 600 250 / 250 Balance -600 / -600 320 / 320 265 / 265 Weight 97.5 kg Intake: IV 250 / 250 265 / 265 Aggrastat Inj 12,500 mcg In 250 250 / 250 ml @ 0 mls/hr .ROUTE .[facility] Rx#:[id number] Nitropress Inj 50 MG In D5W Inj 265 / 265 248 ML @ 0.5 MCG/KG/MIN 14.71 mls/hr IV.CONT TITRATE PRN Rx#: [id number] Oral 320 / 320 Output: Urine 600 / 600 250 / 250 Other: # Voids 1 Date of Last Bowel Movement 03/07/18 03/07/18 # Bowel Movements 2 Narrative: GENERAL: Pleasant 77 yo male, in nad. CARDIOVASCULAR: Regular rate and rhythm without murmurs, gallops, or rubs. Right groin no hematoma, dressing c/d/i. RESPIRATORY: Breath sounds equal bilaterally. No accessory muscle use. GASTROINTESTINAL: Abdomen soft, non-tender, nondistended. MUSCULOSKELETAL: No cyanosis, or edema. BACK: Nontender without obvious deformity. No CVA tenderness. Results Procedures completed during hospitalization: Cardiac catheterization 04/08: 1. Unstable angina at moderate risk myocardial perfusion study with culprit subtotally occluded mid LAD with MEGHANA 2 flow into the distal LAD, 80% stenosis of the LAD at the bifurcation with the first diagonal artery. Otherwise, no significant coronary artery disease in a right dominant system. 2. Normal left ventricular systolic function with ejection fraction of 55%. 3. Successful percutaneous coronary intervention with bare metal stent of the mid to distal LAD from 100% with MEGHANA 2 flow to 0% with MEGHANA 3 flow. 4. Successful PCI with bare metal stent of the proximal LAD at the bifurcation with the first diagonal artery from 80% to 0% with MEGHANA 3 flow. Note, there is a residual 50% stenosis just beyond the proximal mid LAD stent. 5. I recommend Prasugrel 60 mg p.o. bolus, then 10 mg daily for 12-15 months, aspirin 162 mg daily. Aggrastat drip per protocol. We will treat with beta blockers and YANELI inhibitors as clinically and hemodynamically tolerated. Treat lipids per NCEP guideline. I am also going to place the patient on Nipride, as he is having chest pain post-procedure, which is improving. I suspect that he may have had some distal embolization of organized thrombus. Also, his blood pressure increased from 150 baseline to 180 post-stenting of the LAD, so we will also need the Nipride for blood pressure control. Labs on day of discharge: Labs from last 24 hours 04/09/18 04/09/18 04/09/18 09:33 03:44 03:44 WBC 11.8 H RBC 4.58 Hgb 13.1 Hct 38.6 L MCV 84.2 MCH 28.7 MCHC 34.1 RDW 15.3 Plt Count 173 MPV 8.4 Neut % (Auto) 73.4 H Lymph % (Auto) 14.8 [place] % (Auto) 10.1 H Eos % (Auto) 1.3 Baso % (Auto) 0.4 Neut # (Auto) 8.7 H Lymph # (Auto) 1.7 [place] # (Auto) 1.2 H Eos # (Auto) 0.2 Baso # (Auto) 0.0 WBC Differential . Differential Comment Auto diff final Sodium 139 Potassium 3.8 Chloride 101 Carbon Dioxide 28.6 Anion Gap 9 BUN 23 H Creatinine 1.22 Estimated GFR 58 L POC Glucose 211 H Random Glucose 163 H Calcium 8.2 L Total Bilirubin 0.6 Direct Bilirubin 0.2 Indirect Bilirubin 0.4 AST 25 ALT 24 Alkaline Phosphatase 91 Total Creatine Kinase 125 Total Protein 6.4 D Albumin 3.1 L Triglycerides 193 H Cholesterol 114 L LDL Cholesterol, Calc 29 HDL Cholesterol 46.4 Cholesterol/HDL Ratio 2.45 04/08/18 20:59 WBC RBC Hgb Hct MCV MCH MCHC RDW Plt Count MPV Neut % (Auto) Lymph % (Auto) [place] % (Auto) Eos % (Auto) Baso % (Auto) Neut # (Auto) Lymph # (Auto) [place] # (Auto) Eos # (Auto) Baso # (Auto) WBC Differential Differential Comment Sodium Potassium Chloride Carbon Dioxide Anion Gap BUN Creatinine Estimated GFR POC Glucose 214 H Random Glucose Calcium Total Bilirubin Direct Bilirubin Indirect Bilirubin AST ALT Alkaline Phosphatase Total Creatine Kinase Total Protein Albumin Triglycerides Cholesterol LDL Cholesterol, Calc HDL Cholesterol Cholesterol/HDL Ratio - Impressions ITS Impressions Chest X-Ray 04/06/18 17:34 CONCLUSION: Hypoaerated lungs with mild left basilar atelectasis No other evidence of acute process. Myocardial Perfusion Scan Nuc Med 04/07/18 00:00 CONCLUSION: Moderate-sized reversible perfusion defect of the apical wall without associated focal wall motion abnormality. Finding indicates possible ischemic segment. Discharge Plan - Discharge Disposition Patient Disposition: 01 Discharge Home - Discharge Condition Condition: Stable - Discharge Order Discharge Orders: Discharge Order (Routine); Ordered 04/09/18 Ordered By: Catherine Rivera - Discharge Details Anticipated Discharge Date: 04/09/18 - Physicians Team Primary Care Provider: Ryan López Attending Provider: Catherine Rivera Other Providers: Prashant Chauhan MD
[2018-04-09 11:02] VITALS: TEMP 98.4
[2018-04-09 13:33] VITALS: BP 104/51; PULSE 51; RESP 18; O2SAT 90
== END 2018-04-09 13:30 | disposition home or self-care (01) ==
LOC: PHEDA 17:25 → PHED 17:25 → PH3 20:14 → HCIS 04-08 07:39 → HIMC 04-08 15:31
PROVIDERS: ADMIT Hospitalist; ATTEND Hospitalist

== ENCOUNTER 2018-04-16 11:18 | Observation (INO) ==
--- NOTE | 2018-04-16 11:52 | ED ---
HPI General Chief Complaint: Chest Pain Stated Complaint: Medical Time Seen by Provider: 04/16/18 11:27 History of Present Illness HPI narrative: This patient was discharged from the hospital yesterday after chest pain evaluation. He had cardiac catheterization 2 days ago and the seizure was complicated by a dissection flap of the distal LAD. Dr. Chauhan has detailed out the full procedure and evaluation in the [facility] medical record. I have reviewed that. He left the hospital yesterday and was advised to return emergently if he develop any more chest pain. In 930 this morning he did develop some low sternal area pressure and heaviness. He said at times it felt like a muscle cramping. It lasted somewhere between 60 and 90 minutes and resolved. Paramedics did give him aspirin in route. At this time when I see him he is pain-free. He did not have sweating or dyspnea or fever or cough. Symptom severity was moderate. No alleviating factors. No exacerbating factors. Related Data Home Medications Medication Instructions Recorded Confirmed aspirin [Aspir-Low] 81 mg PO DAILY 04/06/18 04/14/18 atorvastatin 80 mg PO DAILY 04/06/18 04/14/18 gabapentin 1,800 mg PO HS 04/06/18 04/14/18 glyburide 5 mg PO DAILY 04/06/18 04/14/18 levothyroxine [Synthroid] 25 mcg PO DAILY 04/06/18 04/14/18 metformin 1,200 mg PO BID 04/06/18 04/14/18 oxycodone 10 mg PO TID 04/06/18 04/14/18 oxycodone 20 mg PO HS 04/06/18 04/14/18 sitagliptin [Januvia] 100 mg PO DAILY 04/06/18 04/14/18 Previous Rx's Medication Instructions Recorded nitroglycerin [Nitrostat] 0.4 mg SUBLINGUAL Q5M PRN #30 tab 04/09/18 prasugrel [Effient] 10 mg PO DAILY #30 tab 04/09/18 ramipril 5 mg PO DAILY #30 cap 04/09/18 amlodipine [Norvasc] 10 mg PO DAILY #30 tab 04/15/18 atenolol 100 mg PO DAILY #30 tab 04/15/18 Allergies Allergy/AdvReac Type Severity Reaction Status Date / Time Sulfa (Sulfonamide Allergy Severe RASH Verified 04/06/18 18:00 Antibiotics) triprolidine Allergy Intermediate HYPERACTIVE Verified 04/06/18 18:00 pseudoephedrine Allergy Mild HYPERACTIVE Verified 04/06/18 18:00 Review of Systems ROS: all other systems reviewed are negative [facility] Medical History Medical History Chronic back pain (Acute) Diabetes (Acute) High cholesterol (Acute) Hypertension (Acute) Hypothyroidism (Acute) Surgical History Surgical History Stented coronary artery (Acute) History of appendectomy (Acute) History of hernia repair (Acute) History of left hip replacement (Acute) History of right knee joint replacement (Acute) Social History Social History Substance History: No History of Abuse Second Hand Smoke Exposure: No Smoking Status: Never smoker Tobacco Type: Cigarettes Number of Pack-Years (if former smoker): 25 (Quit smoking in 1974) How Often Do You Have a Drink Containing Alcohol: Never Recent Travel in [facility] within the Last 8 Weeks: No Recent Out of Country Travel within the Last 8 Weeks: No Immunization History Tetanus Immunization: >5 Years Exam Narrative Exam Narrative: GENERAL: Well-nourished, well-developed patient in no apparent distress. SKIN: Focused skin assessment reveals no rash and nodules. Skin is Warm and dry. HEAD: Atraumatic. Normocephalic. EYES: Pupils equal and round. No scleral icterus. No injection or drainage. ENT: No nasal bleeding or discharge. Mucous membranes pink and moist. NECK: Trachea midline. No JVD. CARDIOVASCULAR: Regular rate and rhythm. No murmur appreciated. RESPIRATORY: No accessory muscle use. Clear to auscultation. Breath sounds equal bilaterally. GASTROINTESTINAL: Abdomen soft, non-tender, nondistended. Hepatic and splenic margins not palpable. MUSCULOSKELETAL: No obvious deformities. No clubbing. No cyanosis. No edema. NEUROLOGICAL: Awake and alert. No obvious cranial nerve deficits. Motor grossly within normal limits. Normal speech. PSYCHIATRIC: Appropriate mood and affect; insight and judgment normal. Course Initial Documented Vital Signs Temperature 98.0 F 04/16/18 11:20 Pulse Rate 49 L 04/16/18 11:20 Respiratory Rate 18 04/16/18 11:20 Blood Pressure 154/70 H 04/16/18 11:20 Pulse Oximetry 94 L 04/16/18 11:20 Last Documented Vital Signs Temperature 98.0 F 04/16/18 11:20 Pulse Rate 49 L 04/16/18 11:20 Respiratory Rate 18 04/16/18 11:20 Blood Pressure 154/70 H 04/16/18 11:20 Pulse Oximetry 94 L 04/16/18 12:19 Medical Decision Making MDM Narrative Medical decision making narrative: 77-year-old male who presents with chest pain that has resolved prior to arrival. EKG shows no acute ST elevations. I have ordered x-ray and labs. He has had aspirin therapy. 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 Initial workup is complete. I reviewed in detail with cardiology coverage who today is Dr. Sykes. She recommends another set of cardiac enzymes 3 hours from the initial. If these are okay and he is not having chest pain then she recommends discharge home to follow-up with Dr. Chauhan. If he develops chest pain or the enzymes are higher than he will be admitted. Shortly after the above the dictation Dr. Chauhan personally called in. He recommends telemetry observation in the hospital. Patient is agreeable. I have spoken with the hospitalist who agrees as well Medical Screen Exam Complete: Yes Emergency Medical Condition: Yes Lab Data Result diagrams: 04/16/18 12:12 04/16/18 12:12 Lab Results 04/16/18 04/16/18 Range/Units 12:12 12:12 WBC 13.4 H (4.0-11.0) th/mm3 RBC 4.51 (4.50-5.90) mil/mm3 Hgb 13.2 (13.0-17.0) gm/dL Hct 39.2 (39.0-51.0) % MCV 86.9 (80.0-100.0) fL MCH 29.2 (27.0-34.0) pg MCHC 33.6 (32.0-36.0) % RDW 16.0 (11.6-17.2) % Plt Count 182 (150-450) th/mm3 MPV 8.8 (7.0-11.0) fL Neut % (Auto) 78.1 H (16.0-70.0) % Lymph % (Auto) 12.0 (9.0-44.0) % [place] % (Auto) 7.4 (0.0-8.0) % Eos % (Auto) 1.9 (0.0-4.0) % Baso % (Auto) 0.6 (0.0-2.0) % Neut # (Auto) 10.4 H (1.8-7.7) th/mm3 Lymph # (Auto) 1.6 (1.0-4.8) th/mm3 [place] # (Auto) 1.0 H (0.0-0.9) th/mm3 Eos # (Auto) 0.3 (0.0-0.4) th/mm3 Baso # (Auto) 0.1 (0.0-0.2) th/mm3 WBC Differential . Differential Comment Auto diff final Sodium 138 (136-145) meq/L Potassium 3.9 (3.5-5.1) meq/L Chloride 103 (98-107) meq/L Carbon Dioxide 27.5 (21.0-32.0) meq/L Anion Gap 8 (5-15) meq/L BUN 19 H (7-18) mg/dL Creatinine 1.31 H (0.60-1.30) mg/dL Estimated GFR 53 L (>89) mL/min Random Glucose 148 H (74-106) mg/dL Calcium 8.5 (8.5-10.1) mg/dL Total Bilirubin 0.7 (0.2-1.0) mg/dL AST 17 (15-37) U/L ALT 21 (12-78) U/L Alkaline Phosphatase 106 (45-117) U/L Total Creatine Kinase 78 (39-308) U/L Troponin I 0.08 H (0.02-0.05) ng/mL Total Protein 7.2 D (6.4-8.2) g/dL Albumin 3.3 L (3.4-5.0) g/dL Imaging Data Radiologist's impression: Chest X-Ray 04/16/18 11:44 CONCLUSION: 1. No acute cardiopulmonary disease. 2. Degenerative changes throughout the thoracic spine. Discharge Plan Discharge Disposition Patient Disposition: 30 Still Patient Discharge Details Diagnosis: Chest pain, CAD (coronary artery disease) Physicians Team ED Provider: Yousuf Prater Primary Care Provider: Ryan López Rxs /Orders / Referrals /Forms Prescriptions: No Action atorvastatin 80 mg Tablet 80 mg PO DAILY RF: 0 gabapentin 600 mg Tablet 1,800 mg PO HS RF: 0 glyburide 5 mg Tablet 5 mg PO DAILY RF: 0 aspirin [Aspir-Low] 81 mg Tablet,Delayed Release (Dr/Ec) 81 mg PO DAILY RF: 0 levothyroxine [Synthroid] 25 mcg Tablet 25 mcg PO DAILY RF: 0 metformin 1,000 mg Tablet 1,200 mg PO BID RF: 0 sitagliptin [Januvia] 50 mg Tablet 100 mg PO DAILY RF: 0 oxycodone 10 mg Tablet 10 mg PO TID RF: 0 oxycodone 20 mg Tablet 20 mg PO HS RF: 0 nitroglycerin [Nitrostat] 0.4 mg Tablet, Sublingual 0.4 mg Sublingual Q5M PRN (Reason: Chest Pain) Qty: 30 RF: 0 prasugrel [Effient] 10 mg Tablet 10 mg PO DAILY Qty: 30 RF: 0 ramipril 5 mg Capsule 5 mg PO DAILY Qty: 30 RF: 0 amlodipine [Norvasc] 10 mg Tablet 10 mg PO DAILY Qty: 30 RF: 0 atenolol 100 mg Tablet 100 mg PO DAILY Qty: 30 RF: 0 Discharge Instructions Patient Printed Instructions: Chest Pain (ED) Status ED Status: With Doctor
[2018-04-16 12:25] LABS: Baso # (Auto) 0.1 th/mm3 (0.0-0.2); Baso % (Auto) 0.6 % (0.0-2.0); Eos # (Auto) 0.3 th/mm3 (0.0-0.4); Eos % (Auto) 1.9 % (0.0-4.0); Hematocrit 39.2 % (39.0-51.0); Hemoglobin 13.2 gm/dL (13.0-17.0); Lymph # (Auto) 1.6 th/mm3 (1.0-4.8); Mean Corpuscular HGB Conc 33.6 % (32.0-36.0); Mean Corpuscular Hemoglobin 29.2 pg (27.0-34.0); Mean Corpuscular Volume 86.9 fL (80.0-100.0); Mean Platelet Volume 8.8 fL (7.0-11.0); Mono % (Auto) 7.4 % (0.0-8.0); Neut # (Auto) 10.4 th/mm3 (1.8-7.7); Neut % (Auto) 78.1 % (16.0-70.0); Platelet Count 182 th/mm3 (150-450); Red Blood Count 4.51 mil/mm3 (4.50-5.90); White Blood Count 13.4 th/mm3 (4.0-11.0)
--- NOTE | 2018-04-16 12:28 | XR ---
EXAM DATE: 04/16/2018 12:18 PM EST AGE/SEX: 77 years / Male INDICATIONS: Chest Pain CLINICAL DATA: This is the patient's initial encounter. Patient reports that signs and symptoms have been present for 1 day and indicates a pain score of 6/10. MEDICAL/SURGICAL HISTORY: . Cardiovascular disease. Hypertension. Diabetes . Coronary artery stent COMPARISON: [facility] [place], CHEST 1V SINGLE AP, 04/14/2018. . FINDINGS: A single AP view of the chest demonstrates the lungs to be symmetrically aerated without evidence of mass, infiltrate or effusion. The cardiomediastinal contours are unremarkable. Degenerative changes are noted throughout the thoracic spine. CONCLUSION: 1. No acute cardiopulmonary disease. 2. Degenerative changes throughout the thoracic spine. Electronically signed by: Matt Pisano MD 04/16/2018 12:26 PM EST
[2018-04-16 12:50] LABS: Alanine Aminotransferase 21 U/L (12-78); Albumin 3.3 g/dL (3.4-5.0); Anion Gap 8 meq/L (5-15); Aspartate Aminotransferase 17 U/L (15-37); Blood Urea Nitrogen 19 mg/dL (7-18); Calcium 8.5 mg/dL (8.5-10.1); Carbon Dioxide 27.5 meq/L (21.0-32.0); Chloride 103 meq/L (98-107); Glomerular Filtration Rate 53 mL/min (>89); Glucose,Random 148 mg/dL (74-106); Potassium 3.9 meq/L (3.5-5.1); Sodium 138 meq/L (136-145)
[2018-04-16 12:54] LABS: Alkaline Phosphatase 106 U/L (45-117); Total Protein 7.2 g/dL (6.4-8.2); Troponin I 0.08 ng/mL (0.02-0.05)
[2018-04-16 13:07] LABS: Creatine Kinase 78 U/L (39-308)
[2018-04-16] MEDS ORDERED: Acetaminophen 325 MG Tablet PO PRN (14:05)
[2018-04-16] MEDS ORDERED: Bisacodyl 10 MG Supp RECTAL PRN (14:05)
[2018-04-16] MEDS ORDERED: Morphine Inj 4 MG/ML Vial IV.PUSH PRN (14:09)
[2018-04-16] MEDS ORDERED: Acetaminophen 500 MG Tablet PO PRN (14:09)
[2018-04-16] MEDS ORDERED: Dextrose 50% in Water 50 ML Vial IV.PUSH PRN (14:10)
[2018-04-16] MEDS ORDERED: Enoxaparin Inj 100 MG/ML Syringe SQ ONE (14:15)
--- NOTE | 2018-04-16 15:35 | P.HP ---
History of Present Illness Primary Care Physician: Ryan López DO Chief Complaint: Chest pain History of Present Illness: This is a 77-year-old male with a history of coronary artery disease status post LAD stent, diabetes mellitus, hyperlipidemia, hypertension, hypothyroidism and chronic back pain. He presents to the emergency room because of chest pain. Patient developed acute moderate sharp nonexertional retrosternal pain this morning associated with dizziness for 2 hours not relieved with nitroglycerin. There was no radiation of pain. He then called 911 and was given 4 doses of baby aspirin and another sublingual nitroglycerin with resolution of pain. Of note, patient was just discharged yesterday status post cardiac catheterization secondary to NSTEMI. Found to have linear dissection in the distal LAD status post successful PCI. Cardiothoracic surgery was consulted and there was no indication for CAB. At this time patient has no complaints. All other systems reviewed negative. 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 EKG independently reviewed SB with nonspecific T changes anteroseptal leads no change from previous. CXR w/o acute cardiopulmonary disease. Review of Systems All other systems reviewed negative except as stated in HPI PMFSH - History History Provided By: Patient - Medical History Medical History: Medical History (Last Reviewed 04/16/18 @ 18:03 by Salbador Rawls MD) Chronic back pain Diabetes High cholesterol Hypertension Hypothyroidism - Surgical History Surgical History: Surgical History (Last Reviewed 04/16/18 @ 18:03 by Salbador Rawls MD) Stented coronary artery History of appendectomy History of hernia repair History of left hip replacement History of right knee joint replacement - Family History Family History: Family History (Last Reviewed 04/16/18 @ 18:03 by Salbador Rawls MD) Mother Family history of heart disease Father Family history of heart disease - Social History I have reviewed the patient's Social History: Yes - Tobacco History Second Hand Smoke Exposure: No Tobacco Use In Past 30 Days: No Smoking Status: Never smoker Tobacco Type: Cigarettes Number of Pack Years (if former smoker): 25 (Quit smoking in 1974) - Alcohol History How Often Do You Have a Drink Containing Alcohol: Never - Substance Use History Substance History: No History of Abuse - Travel History Recent Travel in the [facility] Within the Last 8 Weeks: No Recent Travel Out of the Country Within the Last 8 Weeks: No - Immunization History Tetanus Immunization: >5 Years Medications and Allergies Active Medications: Active Medications Acetaminophen (Tylenol) 650 mg PO Q4H PRN PRN Reason: Temp > 100.4 Acetaminophen (Tylenol) 500 mg PO Q4H PRN PRN Reason: HEADACHE Hydrocodone Bitart/Acetaminophen ([place] 7.5/325) 1 tab PO Q4H PRN PRN Reason: PAIN SCALE 1 TO 7 Bisacodyl (Dulcolax Supp) 10 mg RECTAL DAILY PRN PRN Reason: SEVERE CONSITIPATION Dextrose (D50w Vial) 50 ml IV.PUSH UNSCH PRN PRN Reason: PER HYPOGLYCEMIA PROTOCOL Glucagon (Glucagon Inj) 1 mg OTHER PRN PRN PRN Reason: for Hypoglycemia Protocol Insulin Aspart (Novolog Insulin [place]al Sugar Inj) 0 unit SQ ACHS HUGH; Protocol Lactulose (Lactulose Liq) 30 ml PO DAILY PRN PRN Reason: SEVERE CONSITIPATION Morphine Sulfate (Morphine Inj) 2 mg IV.PUSH Q4H PRN PRN Reason: PAIN SCALE 8 TO 10 Nitroglycerin (Nitrostat Sl) 0.4 mg SL Q5M PRN PRN Reason: CHEST PAIN Ondansetron HCl (Zofran Inj) 4 mg IV.PUSH Q6H PRN PRN Reason: NAUSEA OR VOMITING Senna/Docusate Sodium (Sarita-Colace) 1 tab PO BID HUGH Sennosides (Senokot) 17.2 mg PO Q12H PRN PRN Reason: Moderate Constipation Sodium Chloride (Ns Flush) 2 ml IV.FLUSH UNSCH PRN PRN Reason: FLUSH AFTER USING IV ACCESS Allergies Allergy/AdvReac Type Severity Reaction Status Date / Time Sulfa (Sulfonamide Allergy Severe RASH Verified 04/06/18 18:00 Antibiotics) triprolidine Allergy Intermediate HYPERACTIVE Verified 04/06/18 18:00 pseudoephedrine Allergy Mild HYPERACTIVE Verified 04/06/18 18:00 Home Medications Medication Instructions Recorded Confirmed Type aspirin [Aspir-Low] 81 mg PO DAILY 04/06/18 04/16/18 History atorvastatin 80 mg PO DAILY 04/06/18 04/16/18 History gabapentin 1,800 mg PO HS 04/06/18 04/16/18 History glyburide 5 mg PO DAILY 04/06/18 04/16/18 History levothyroxine [Synthroid] 25 mcg PO DAILY 04/06/18 04/16/18 History metformin 1,200 mg PO BID 04/06/18 04/16/18 History oxycodone 10 mg PO TID 04/06/18 04/16/18 History oxycodone 20 mg PO HS 04/06/18 04/16/18 History sitagliptin [Januvia] 100 mg PO DAILY 04/06/18 04/16/18 History Exam Vital signs: Vital Signs 04/16/18 11:20 04/16/18 12:19 Temperature 98.0 F Pulse Rate 49 L Respiratory Rate 18 Blood Pressure 154/70 H Pulse Oximetry 94 L 94 L Intake & Output 04/15/18 04/16/18 04/16/18 18:59 06:59 18:59 Weight 113.398 kg Narrative: GENERAL: WD, WN in [place] SKIN: Warm and dry. HEAD: Atraumatic. Normocephalic. EYES: Pupils equal and round. No scleral icterus. No injection or drainage. ENT: No nasal bleeding or discharge. Mucous membranes pink and moist. NECK: Trachea midline. No JVD. CARDIOVASCULAR: Regular rate and rhythm. RESPIRATORY: No accessory muscle use. Clear to auscultation. Breath sounds equal bilaterally. GASTROINTESTINAL: Abdomen soft, non-tender, nondistended. MUSCULOSKELETAL: Extremities without clubbing, cyanosis, or edema. No obvious deformities. NEUROLOGICAL: Awake and alert. No obvious cranial nerve deficits. Motor grossly within normal limits. Five out of 5 muscle strength in the arms and legs. Normal speech. PSYCHIATRIC: Appropriate mood and affect; insight and judgment normal. Results - Labs CBC & Chem 7: 04/16/18 12:12 04/16/18 12:12 Labs: Laboratory Results - last 24 hr 04/16/18 04/16/18 12:12 12:12 WBC 13.4 H RBC 4.51 Hgb 13.2 Hct 39.2 MCV 86.9 MCH 29.2 MCHC 33.6 RDW 16.0 Plt Count 182 MPV 8.8 Neut % (Auto) 78.1 H Lymph % (Auto) 12.0 [place] % (Auto) 7.4 Eos % (Auto) 1.9 Baso % (Auto) 0.6 Neut # (Auto) 10.4 H Lymph # (Auto) 1.6 [place] # (Auto) 1.0 H Eos # (Auto) 0.3 Baso # (Auto) 0.1 WBC Differential . Differential Comment Auto diff final Sodium 138 Potassium 3.9 Chloride 103 Carbon Dioxide 27.5 Anion Gap 8 BUN 19 H Creatinine 1.31 H Estimated GFR 53 L Random Glucose 148 H Calcium 8.5 Total Bilirubin 0.7 AST 17 ALT 21 Alkaline Phosphatase 106 Total Creatine Kinase 78 Troponin I 0.08 H Total Protein 7.2 D Albumin 3.3 L - Imaging Impressions Chest X-Ray 04/16/18 11:44 CONCLUSION: 1. No acute cardiopulmonary disease. 2. Degenerative changes throughout the thoracic spine. Caprini VTE Risk Assessment Caprini VTE Risk Assessment: Moderate/High Risk (score >= 2) Caprini Risk Assessment Model: Point Value = 1 Point Value = 2 Point Value = 3 Point Value = 5 Age 41-60 Minor surgery BMI > 25 kg/m2 Swollen legs Varicose veins or History of unexplained or recurrent spontaneous Oral contraceptives or hormone replacement Sepsis (< 1 month) Serious lung disease, including pneumonia (< 1 month) Abnormal pulmonary function Acute myocardial infarction Congestive heart failure (< 1 month) History of inflammatory bowel disease Medical patient at bed rest Age 61-74 Arthroscopic surgery Major open surgery (> 45 min) Laparoscopic surgery (> 45 min) Malignancy Confined to bed (> 72 hours) Immobilizing plaster cast Central venous access Age >= 75 History of VTE Family history of VTE Factor V Leiden Prothrombin [id number] Lupus anticoagulant Anticardiolipin antibodies Elevated serum homocysteine Heparin-induced thrombocytopenia Other congenital or acquired thrombophilia Stroke (< 1 month) Elective arthroplasty Hip, pelvis, or leg fracture Acute spinal cord injury (< 1 month) Prophylaxis Regimen: Total Risk Factor Score Risk Level Prophylaxis Regimen 0-1 Low Early ambulation 2 Moderate Order ONE of the following: *Sequential Compression Device (SCD) *Heparin 5000 units SQ BID 3-4 Higher Order ONE of the following medications: *Heparin 5000 units SQ TID *Enoxaparin/Lovenox 40 mg SQ daily (WT < 150 kg, CrCl > 30 mL/min) *Enoxaparin/Lovenox 30 mg SQ daily (WT < 150 kg, CrCl > 10-29 mL/min) *Enoxaparin/Lovenox 30 mg SQ BID (WT < 150 kg, CrCl > 30 mL/min) AND/OR *Sequential Compression Device (SCD) 5 or more Highest Order ONE of the following medications: *Heparin 5000 units SQ TID (Preferred with Epidurals) *Enoxaparin/Lovenox 40 mg SQ daily (WT < 150 kg, CrCl > 30 mL/min) *Enoxaparin/Lovenox 30 mg SQ daily (WT < 150 kg, CrCl > 10-29 mL/min) *Enoxaparin/Lovenox 30 mg SQ BID (WT < 150 kg, CrCl > 30 mL/min) AND *Sequential Compression Device (SCD) Assessment and Plan - Plan This is a 77-year-old male with a history of coronary artery disease status post LAD stent, diabetes mellitus, hyperlipidemia, hypertension, hypothyroidism and chronic back pain. He presents with chest pain associated with dizziness for 2 hours not relieved with nitroglycerin. There was no radiation of pain. He then called 911 and was given 4 doses of baby aspirin and another sublingual nitroglycerin with resolution of pain. Of note, patient was just discharged status post cardiac catheterization secondary to NSTEMI. Found to have linear dissection in the distal LAD status post successful PCI. Cardiothoracic surgery was consulted and there was no indication for CAB. Currently pain- free. Trend cardiac enzymes. Continue aspirin, effient, beta-joslyn and statin. Dr Chauhan will be seeing pt Sinus bradycardia. Atenolol dose has been decreased. Continue to monitor on telemetry Leukocytosis. Likely reactive. Will monitor Acute kidney injury. Nonoliguric. Repeat BMP in the morning. Avoid nephrotoxins DVT prophylaxis with SCD and Lovenox Discharge Planning: Per cardiology
[2018-04-16 15:57] LABS: Troponin I 0.06 ng/mL (0.02-0.05)
[2018-04-16] MEDS: Atenolol 100 MG Tablet PO SCH (16:17)
[2018-04-16] MEDS: amLODIPine 10 MG Tablet PO SCH (16:18)
[2018-04-16] MEDS: Insulin NovoLOG Aspart Correctional Sugar Inj SQ SCH ×2 (17:44→20:33)
[2018-04-16 20:12] LABS: Troponin I 0.06 ng/mL (0.02-0.05)
[2018-04-16] MEDS: Senna/Docusate Sodium 8.6/50 MG Tablet PO SCH (20:52)
[2018-04-16] MEDS ORDERED: Gabapentin 300 MG Capsule PO SCH (21:00)
[2018-04-17 06:25] LABS: Baso # (Auto) 0.1 th/mm3 (0.0-0.2); Baso % (Auto) 0.6 % (0.0-2.0); Eos # (Auto) 0.3 th/mm3 (0.0-0.4); Eos % (Auto) 3.1 % (0.0-4.0); Hematocrit 36.2 % (39.0-51.0); Hemoglobin 12.3 gm/dL (13.0-17.0); Lymph # (Auto) 1.7 th/mm3 (1.0-4.8); Lymph % (Auto) 18.1 % (9.0-44.0); Mean Corpuscular Hemoglobin 28.8 pg (27.0-34.0); Mean Corpuscular Volume 84.6 fL (80.0-100.0); Mean Platelet Volume 8.5 fL (7.0-11.0); Mono # (Auto) 0.8 th/mm3 (0.0-0.9); Mono % (Auto) 8.8 % (0.0-8.0); Neut # (Auto) 6.6 th/mm3 (1.8-7.7); Neut % (Auto) 69.4 % (16.0-70.0); Platelet Count 157 th/mm3 (150-450); Red Blood Count 4.28 mil/mm3 (4.50-5.90); Red Cell Distribution Width 15.7 % (11.6-17.2); White Blood Count 9.5 th/mm3 (4.0-11.0)
[2018-04-17 06:55] LABS: Calcium 8.6 mg/dL (8.5-10.1); Carbon Dioxide 28.1 meq/L (21.0-32.0); Potassium 3.7 meq/L (3.5-5.1)
[2018-04-17] MEDS ORDERED: Ramipril 5 MG Capsule PO SCH (09:00)
[2018-04-17] MEDS: Atenolol 100 MG Tablet PO SCH (10:02)
[2018-04-17] MEDS: amLODIPine 10 MG Tablet PO SCH (10:03)
[2018-04-17] MEDS: Insulin NovoLOG Aspart Correctional Sugar Inj SQ SCH ×2 (10:04→12:23)
[2018-04-17] MEDS: Senna/Docusate Sodium 8.6/50 MG Tablet PO SCH (10:35)
--- NOTE | 2018-04-17 13:09 | MB ---
cc: Prashant Chauhan MD DATE: 04/17/2018 HISTORY OF PRESENT ILLNESS: Bryn is a very pleasant 77-year-old gentleman who initially presented with a subtotally occluded proximal LAD with about 30 mm of filling defect, underwent successful PCI. He had a controlled dissection with MEGHANA 3 flow in the distal LAD, came back in last week with recurrent chest pain and elevated troponin. I was able to place a 258 Integrity stent at the dissection site. I was not able to deliver a longer stent or an additional stent due to the fact that the stent in the proximal LAD was obstructing passage of longer stents despite using sofia wires. I had Dr. Roman review of the films. He did not think surgery was indicated. The patient went home. He came back in yesterday with chest pain. He says it is very mild, and it is different from the pain he had initially. He is feeling better this morning. He denies any fever, chills, cough, GI or bleeding, PND, orthopnea, syncope, or dizziness. PAST MEDICAL HISTORY: As per history of present illness. History of chronic back pain, diabetes, hypertension, hyperlipidemia, hypothyroidism, appendectomy, hernia repair, hip replacement, right knee replacement. ALLERGIES: SULFA, TRIPROLIDINE, PSEUDOEPHEDRINE. SOCIAL HISTORY: He denies tobacco or alcohol use. MEDICATIONS: In the hospital: 1. Norvasc 10 mg daily. 2. Aspirin 81 mg daily. 3. Atenolol 100 mg daily. 4. Atorvastatin 80 mg daily. 5. Effient 10 mg daily. 6. Altace 5 mg daily. PHYSICAL EXAMINATION: VITAL SIGNS: Pulse 54, saturations 96% on room air, blood pressure 125/66, respiratory rate 18. GENERAL: He is alert and oriented x3, in no acute distress. NECK: Supple. No JVD or bruit. CARDIOVASCULAR: S1, S2. No murmurs, rubs, gallops. LUNGS: Clear to auscultation bilaterally. ABDOMEN: Soft, nontender, nondistended with positive bowel sounds. EXTREMITIES: Lower extremity edema. LABORATORY DATA: White count 9.5, hemoglobin 12.3, hematocrit 36.2, platelet count 137. Sodium 139, potassium 3.7, chloride 104, bicarbonate 28.1 BUN 20, creatinine 1.15. Troponin initially 0.08 followed by 0.06 and 0.06. Chest x-ray: No acute cardiopulmonary disease. EKG: Normal sinus rhythm with nonspecific ST-T wave changes. DIAGNOSES: 1. Chest pain. 2. Coronary artery disease. 3. Distal left anterior descending dissection. 4. Diabetes mellitus. 5. Low back pain. DISCUSSION: At this point in time, the patient's symptoms are clearly different than prior to his stent. His symptoms are mild. He is very anxious about his condition and so is his . I explained to him that Dr. Roman reviewed his last film and did not think he was a candidate for surgery and that also bypassing an open vessel would be high risk for the graft shutting down. Also, that angioplasty is high risk given the difficulty of delivering the stent, requiring at least a sofia wire if not two sofia wires, and that at this point in time, I would prefer a functional analysis with exercise myocardial perfusion study to have more objective evidence for indications of either repeat PCI and/or CABG. The patient agrees. He understands. I have explained to him that if his symptoms become worse than mild and last more than 15 minutes to call 911. I also explained this to his . Recommended that he stays on aspirin 162 mg a day, which I have belabored that he needs to be on 2 baby aspirins a day. Also, continue the Effient 10 mg daily, atenolol, Lipitor, Altace. He is going to follow up with me in my office tomorrow for further evaluation and management. The patient and his completely understand the plan and agree. MD NARESH Diamond/mabel , 10:01 AM , 10:11 AM
--- NOTE | 2018-04-17 13:18 | P.PNIM ---
Subjective Interval history: The patient was sitting up and eating lunch. He denied any chest pain or shortness of breath. He was looking forward to going home. 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 Discussed with nursing and cardiology. Physical Exam Vital signs: Vital Signs 04/16/18 16:00 04/16/18 17:14 04/16/18 19:00 Temperature 98.6 F 98.4 F Pulse Rate 56 L 45 L 52 L Respiratory Rate 18 18 Blood Pressure 139/82 141/72 H Pulse Oximetry 96 04/16/18 20:00 04/16/18 21:00 04/16/18 22:00 Temperature 98.9 F Pulse Rate 50 L 60 62 Respiratory Rate 16 Blood Pressure 138/67 Pulse Oximetry 94 L 04/16/18 23:00 04/16/18 23:39 04/17/18 00:00 Temperature Pulse Rate 52 L 61 50 L Respiratory Rate 16 Blood Pressure 122/68 Pulse Oximetry 94 L 04/17/18 01:00 04/17/18 02:00 04/17/18 03:00 Temperature Pulse Rate 50 L 50 L 55 L Respiratory Rate Blood Pressure Pulse Oximetry 04/17/18 04:00 04/17/18 05:00 04/17/18 06:00 Temperature Pulse Rate 54 L 50 L 50 L Respiratory Rate 18 Blood Pressure 125/66 Pulse Oximetry 94 L 04/17/18 07:00 04/17/18 08:14 04/17/18 10:16 Temperature 97.7 F Pulse Rate 49 L 60 Respiratory Rate 18 Blood Pressure 143/76 H Pulse Oximetry 96 96 Intake & Output 04/16/18 04/17/18 04/17/18 18:59 06:59 18:59 Intake Total 0 / 0 240 / 240 Output Total 0 / 0 600 / 600 Balance 0 / 0 -360 / -360 Weight 113.398 kg 95.3 kg Intake: Oral 0 / 0 240 / 240 Output: Urine 0 / 0 600 / 600 Other: # Voids 0 Weight On Admission 95.5 kg Narrative: GENERAL: No distress. SKIN: Warm and dry. HEAD: Atraumatic. Normocephalic. EYES: Pupils equal and round. No scleral icterus. No injection or drainage. ENT: No nasal bleeding or discharge. Mucous membranes pink and moist. NECK: Trachea midline. No JVD. CARDIOVASCULAR: Regular rate and rhythm. RESPIRATORY: No accessory muscle use. Clear to auscultation. Breath sounds equal bilaterally. GASTROINTESTINAL: Abdomen soft, non-tender, nondistended. MUSCULOSKELETAL: Extremities without clubbing, cyanosis, or edema. No obvious deformities. NEUROLOGICAL: Awake and alert. No obvious cranial nerve deficits. Motor grossly within normal limits. Five out of 5 muscle strength in the arms and legs. Normal speech. PSYCHIATRIC: Appropriate mood and affect; insight and judgment normal. Results - Labs CBC & Chem 7: 04/17/18 06:03 04/17/18 06:03 Laboratory Results - last 24 hr 04/16/18 04/16/18 04/16/18 15:18 17:27 19:09 WBC RBC Hgb Hct MCV MCH MCHC RDW Plt Count MPV Neut % (Auto) Lymph % (Auto) [place] % (Auto) Eos % (Auto) Baso % (Auto) Neut # (Auto) Lymph # (Auto) [place] # (Auto) Eos # (Auto) Baso # (Auto) WBC Differential Differential Comment Sodium Potassium Chloride Carbon Dioxide Anion Gap BUN Creatinine Estimated GFR POC Glucose 145 H Random Glucose Calcium Total Creatine Kinase 71 77 Troponin I 0.06 H 0.06 H 04/16/18 04/17/18 04/17/18 20:26 06:03 06:03 WBC 9.5 RBC 4.28 L Hgb 12.3 L Hct 36.2 L MCV 84.6 MCH 28.8 MCHC 34.0 RDW 15.7 Plt Count 157 MPV 8.5 Neut % (Auto) 69.4 Lymph % (Auto) 18.1 [place] % (Auto) 8.8 H Eos % (Auto) 3.1 Baso % (Auto) 0.6 Neut # (Auto) 6.6 Lymph # (Auto) 1.7 [place] # (Auto) 0.8 Eos # (Auto) 0.3 Baso # (Auto) 0.1 WBC Differential . Differential Comment Auto diff final Sodium 139 Potassium 3.7 Chloride 104 Carbon Dioxide 28.1 Anion Gap 7 BUN 20 H Creatinine 1.15 Estimated GFR 62 L POC Glucose 97 Random Glucose 117 H Calcium 8.6 Total Creatine Kinase Troponin I 04/17/18 04/17/18 04/17/18 08:23 10:04 12:08 WBC RBC Hgb Hct MCV MCH MCHC RDW Plt Count MPV Neut % (Auto) Lymph % (Auto) [place] % (Auto) Eos % (Auto) Baso % (Auto) Neut # (Auto) Lymph # (Auto) [place] # (Auto) Eos # (Auto) Baso # (Auto) WBC Differential Differential Comment Sodium Potassium Chloride Carbon Dioxide Anion Gap BUN Creatinine Estimated GFR POC Glucose 132 H 246 H Random Glucose Calcium Total Creatine Kinase Troponin I 0.06 H Assessment and Plan - Plan Chest pain This is a 77-year-old male with a history of coronary artery disease status post LAD stent, diabetes mellitus, hyperlipidemia, hypertension, hypothyroidism and chronic back pain. He presents with chest pain associated with dizziness for 2 hours not relieved with nitroglycerin. There was no radiation of pain. He then called 911 and was given 4 doses of baby aspirin and another sublingual nitroglycerin with resolution of pain. Of note, patient was just discharged status post cardiac catheterization secondary to NSTEMI. Found to have linear dissection in the distal LAD status post successful PCI. Cardiothoracic surgery was consulted at that time and there was no indication for CABG. Currently pain-free. Cardiology consult appreciated. -Continue aspirin, effient, beta-joslyn, ACEi and statin. -cardiology cleared the pt for discharge. The pt will follow up with cardiology in the office on 04/17. Sinus bradycardia Atenolol dose has been decreased. -Continue to monitor on telemetry. -outpt follow-up. Leukocytosis Likely reactive. -resolved. Acute kidney injury Nonoliguric. Improved. -Avoid nephrotoxins. DVT prophylaxis with SCD and Lovenox Discharge Planning: D/c home with cardiology follow-up
[2018-04-17 15:01] VITALS: BP 130/79; RESP 16; TEMP 98; O2SAT 98
[2018-04-17 15:04] VITALS: PULSE 52
--- NOTE | 2018-04-17 15:42 | ECG ---
Date Performed: 04/16/2018 Time Performed: 17:05:18 PTAGE: 77 years EKG: Sinus bradycardia. Anteroseptal T wave changes are nonspecific Borderline ECG PREVIOUS TRACING : 04/16/2018 15.31 Since the previous tracing, no significant change noted DOCTOR: Axel Fitzgerald Interpretating Date/Time 04/17/2018 15:41:54
--- NOTE | 2018-04-17 15:42 | ECG ---
Date Performed: 04/16/2018 Time Performed: 15:31:26 PTAGE: 77 years EKG: SINUS BRADYCARDIA Diffuse Nonspecific T-wave change ABNORMAL ECG PREVIOUS TRACING : 04/16/2018 11.25 Since the previous tracing, no significant change noted DOCTOR: Axel Fitzgerald Interpretating Date/Time 04/17/2018 15:41:46
--- NOTE | 2018-04-17 15:42 | ECG ---
Date Performed: 04/16/2018 Time Performed: 11:25:43 PTAGE: 77 years EKG: SINUS BRADYCARDIA NONSPECIFIC T-WAVE ABNORMALITY BORDERLINE ECG PREVIOUS TRACING : 04/15/2018 08.39 Compared to previous tracing, heart rate is slower, Otherwi se no significant serial change DOCTOR: Axel Fitzgerald Interpretating Date/Time 04/17/2018 15:41:19
== END 2018-04-17 14:31 | disposition home or self-care (01) ==
LOC: NEPE 11:18 → NEDA 11:18 → HCIS 16:55
PROVIDERS: ADMIT Hospitalist; ATTEND Hospitalist
DX: I25.42 Coronary artery dissection; I25.2 Old myocardial infarction; E11.9 Type 2 diabetes mellitus without complications; R00.1 Bradycardia, unspecified; R07.89 Other chest pain; D72.829 Elevated white blood cell count, unspecified; Z79.82 Long term (current) use of aspirin; G89.29 Other chronic pain; N17.9 Acute kidney failure, unspecified; E78.5 Hyperlipidemia, unspecified; Z79.899 Other long term (current) drug therapy; E03.9 Hypothyroidism, unspecified; I25.10 Atherosclerotic heart disease of native coronary artery without angina pectoris; Z95.5 Presence of coronary angioplasty implant and graft; Z87.891 Personal history of nicotine dependence; I10 Essential (primary) hypertension

== ENCOUNTER 2018-04-22 13:39 | Observation (INO) ==
--- NOTE | 2018-04-22 13:57 | ED ---
HPI General Chief Complaint: Chest Pain Stated Complaint: Emergent Time Seen by Provider: 04/22/18 13:43 Source: patient and RN notes reviewed Mode of arrival: ambulatory Limitations: no limitations History of Present Illness HPI narrative: 77-year-old male presents to the emergency department via EMS for evaluation of chest burning and pressure that started around 12:00 today when he woke up. Patient had 2 cardiac stents placed approximately 3 weeks ago and another stent placed 1 week ago. His nursing instructor is Dr. Chauhan. Apparently, he is found to have a controlled dissection in the distal LAD and stent was placed at the dissection site. Apparently, Dr. Roman reviewed and did not think surgery was indicated. Patient states that his burning pain is similar to when he had his last stent placed. He denies any shortness of breath. No nausea or vomiting. He states he is currently on aspirin and Effient. Patient states the current pain is 3/10. He did take nitro x3 prior to arrival. He states the nitro would subside his pain for a short time and then the pain would return. He took aspirin today. Moderate severity. MD complaint: Reports chest pain STEMI Alert: No Onset (ago): hour(s) (1.5) Duration: constant Onset: during rest Pain location: Reports substernal Severity: moderate Severity scale (1-10): 3 Quality: Reports other (burning and pressure) Pain radiation: Reports none Relieving factors: nitroglycerin Context: Reports other (recent stent placed) Associated symptoms: Denies nausea, vomiting, diaphoresis, dyspnea, sense of impending doom, syncope, palpitations, fever, cough and leg swelling Treatments prior to arrival chest pain: Reports aspirin and nitroglycerin Related Data Home Medications Medication Instructions Recorded Confirmed atorvastatin 80 mg PO DAILY 04/06/18 04/22/18 gabapentin 1,800 mg PO HS 04/06/18 04/22/18 glyburide 5 mg PO DAILY 04/06/18 04/22/18 levothyroxine [Synthroid] 25 mcg PO DAILY 04/06/18 04/22/18 metformin 1,200 mg PO BID 04/06/18 04/22/18 oxycodone 10 mg PO TID 04/06/18 04/16/18 oxycodone 20 mg PO HS 04/06/18 04/16/18 sitagliptin [Januvia] 100 mg PO DAILY 04/06/18 04/22/18 Previous Rx's Medication Instructions Recorded nitroglycerin [Nitrostat] 0.4 mg SUBLINGUAL Q5M PRN #30 tab 04/09/18 prasugrel [Effient] 10 mg PO DAILY #30 tab 04/09/18 ramipril 5 mg PO DAILY #30 cap 04/09/18 amlodipine [Norvasc] 10 mg PO DAILY #30 tab 04/15/18 atenolol 100 mg PO DAILY #30 tab 04/15/18 aspirin 162 mg PO DAILY #60 tab 04/17/18 Allergies Allergy/AdvReac Type Severity Reaction Status Date / Time Sulfa (Sulfonamide Allergy Severe RASH Verified 04/22/18 14:17 Antibiotics) triprolidine Allergy Intermediate HYPERACTIVE Verified 04/22/18 14:17 pseudoephedrine Allergy Mild HYPERACTIVE Verified 04/22/18 14:17 Review of Systems ROS: all other systems reviewed are negative PMFSH Social History Social History Substance History: No History of Abuse Second Hand Smoke Exposure: No Smoking Status: Former smoker Tobacco Type: Cigarettes Number of Pack-Years (if former smoker): 25 (Quit smoking in 1974) How Often Do You Have a Drink Containing Alcohol: Never Recent Travel in [facility] within the Last 8 Weeks: No Recent Out of Country Travel within the Last 8 Weeks: No Exam Narrative Exam Narrative: GENERAL: Well-nourished, well-developed male patient, afebrile SKIN: Focused skin assessment warm/dry. HEAD: Normocephalic. Atraumatic EYES: No scleral icterus. No injection or drainage. NECK: Supple, trachea midline. No JVD or lymphadenopathy. CARDIOVASCULAR: Bradycardic rate and rhythm without murmurs, gallops, or rubs. Bilateral radial and pedal pulses are 2+ RESPIRATORY: Breath sounds equal bilaterally. No accessory muscle use. Lung sounds are clear to auscultation GASTROINTESTINAL: Abdomen soft, non-tender, nondistended. MUSCULOSKELETAL: No cyanosis, or edema. BACK: Nontender without obvious deformity. No CVA tenderness. Course Initial Documented Vital Signs Temperature 99 F 04/22/18 13:55 Pulse Rate 78 04/22/18 13:55 Respiratory Rate 16 04/22/18 13:55 Blood Pressure 146/59 H 04/22/18 13:55 Pulse Oximetry 99 04/22/18 13:55 Last Documented Vital Signs Temperature 99 F 04/22/18 13:55 Pulse Rate 78 04/22/18 13:55 Respiratory Rate 16 04/22/18 13:55 Blood Pressure 146/59 H 04/22/18 13:55 Pulse Oximetry 98 04/22/18 14:32 Medical Decision Making ZA Attestation ZA supervised visit: Yes Attestation: I, Dr. Sherman, have reviewed the advance practice practitioner's documentation and am in agreement, met with the patient face to face, made the diagnosis, and the medical decision making was done by me. *My assessment and Findings: Patient seen and evaluated with nurse practitioner , please see nurse practitioner notes for further details. He is a elderly gentleman with extensive cardiac history with recent stenting done by Dr. Chauhan, history of LAD dissection, and coming in with chest pains. EKG and workup so far is unremarkable but at this point, we had called Dr. Chauhan, and while trying to get in contact with him, my plan would be to admit the patient for further treatment. Case is discussed with Dr. Johnson for admission. MDM Narrative Medical decision making narrative: 77-year-old male with history of cardiac stents and LAD controlled dissection presents to the emergency department for evaluation of midsternal chest pressure and burning. His nursing instructor is Dr. Chauhan. EKG shows sinus bradycardia, heart rate 49. CBC, CMP, magnesium, CK , troponin, PTT, PT/INR, chest x-ray ordered and pending. CBC shows no acute abnormality. CMP shows no acute abnormalities. Magnesium is 1.6. CK is 114. Troponin is less than 0.02. PTT is 29.5. PT/INR is 10.5/ 1.0. Chest x-ray shows no acute disease. I tried to talk to Dr. Chauhan, but he is unavailable, busy in surgery. I spoke to [facility] who accepted admission. Medical Screen Exam Complete: Yes Emergency Medical Condition: Yes Lab Data Result diagrams: 04/22/18 13:49 04/22/18 13:49 Lab Results 04/22/18 04/22/18 04/22/18 Range/Units 13:49 13:49 13:49 WBC 9.1 (4.0-11.0) th/mm3 RBC 4.24 L (4.50-5.90) mil/mm3 Hgb 12.3 L (13.0-17.0) gm/dL Hct 36.9 L (39.0-51.0) % MCV 87.0 (80.0-100.0) fL MCH 29.0 (27.0-34.0) pg MCHC 33.3 (32.0-36.0) % RDW 16.1 (11.6-17.2) % Plt Count 172 (150-450) th/mm3 MPV 8.5 (7.0-11.0) fL Neut % (Auto) 74.0 H (16.0-70.0) % Lymph % (Auto) 14.1 (9.0-44.0) % [place] % (Auto) 8.1 H (0.0-8.0) % Eos % (Auto) 3.0 (0.0-4.0) % Baso % (Auto) 0.8 (0.0-2.0) % Neut # (Auto) 6.8 (1.8-7.7) th/mm3 Lymph # (Auto) 1.3 (1.0-4.8) th/mm3 [place] # (Auto) 0.7 (0.0-0.9) th/mm3 Eos # (Auto) 0.3 (0.0-0.4) th/mm3 Baso # (Auto) 0.1 (0.0-0.2) th/mm3 WBC Differential . Differential Comment Auto diff final PT 10.5 (9.8-11.6) sec INR 1.0 Ratio APTT 29.5 (23.4-31.7) sec Sodium 139 (136-145) meq/L Potassium 4.4 (3.5-5.1) meq/L Chloride 105 (98-107) meq/L Carbon Dioxide 26.8 (21.0-32.0) meq/L Anion Gap 7 (5-15) meq/L BUN 15 (7-18) mg/dL Creatinine 1.34 H (0.60-1.30) mg/dL Estimated GFR 52 L (>89) mL/min Random Glucose 216 H (74-106) mg/dL Calcium 8.8 (8.5-10.1) mg/dL Magnesium 1.6 (1.5-2.5) mg/dL Total Bilirubin 0.8 (0.2-1.0) mg/dL AST 15 (15-37) U/L ALT 19 (12-78) U/L Alkaline Phosphatase 99 (45-117) U/L Total Creatine Kinase 114 (39-308) U/L CK-MB (CK-2) 3.3 (0.5-3.6) ng/mL Troponin I Less than 0.02 L (0.02-0.05) ng/mL Total Protein 6.9 (6.4-8.2) g/dL Albumin 3.2 L (3.4-5.0) g/dL Imaging Data Radiologist's impression: Chest X-Ray 04/22/18 13:47 CONCLUSION: No acute disease Discharge Plan Discharge Disposition Patient Disposition: 30 Still Patient Discharge Details Diagnosis: Chest pain Physicians Team ED Provider: Kevin Sherman ED Midlevel Provider: Luisa Zuluaga Primary Care Provider: Ryan López Attending Provider: Dann Johnson Other Providers: Prashant Chauhan Status ED Status: Admitted Patient
[2018-04-22 13:59] LABS: Baso # (Auto) 0.1 th/mm3 (0.0-0.2); Baso % (Auto) 0.8 % (0.0-2.0); Eos # (Auto) 0.3 th/mm3 (0.0-0.4); Hematocrit 36.9 % (39.0-51.0); Hemoglobin 12.3 gm/dL (13.0-17.0); Lymph # (Auto) 1.3 th/mm3 (1.0-4.8); Lymph % (Auto) 14.1 % (9.0-44.0); Mean Corpuscular HGB Conc 33.3 % (32.0-36.0); Mean Platelet Volume 8.5 fL (7.0-11.0); Mono # (Auto) 0.7 th/mm3 (0.0-0.9); Mono % (Auto) 8.1 % (0.0-8.0); Neut # (Auto) 6.8 th/mm3 (1.8-7.7); Platelet Count 172 th/mm3 (150-450); Red Blood Count 4.24 mil/mm3 (4.50-5.90); Red Cell Distribution Width 16.1 % (11.6-17.2); White Blood Count 9.1 th/mm3 (4.0-11.0)
[2018-04-22 14:09] LABS: Activated Partial Thrombo Time 29.5 sec (23.4-31.7); Prothrombin Time 10.5 sec (9.8-11.6)
[2018-04-22 14:16] LABS: Alanine Aminotransferase 19 U/L (12-78); Albumin 3.2 g/dL (3.4-5.0); Anion Gap 7 meq/L (5-15); Aspartate Aminotransferase 15 U/L (15-37); Blood Urea Nitrogen 15 mg/dL (7-18); Calcium 8.8 mg/dL (8.5-10.1); Carbon Dioxide 26.8 meq/L (21.0-32.0); Chloride 105 meq/L (98-107); Glomerular Filtration Rate 52 mL/min (>89); Glucose,Random 216 mg/dL (74-106); Magnesium 1.6 mg/dL (1.5-2.5); Potassium 4.4 meq/L (3.5-5.1); Sodium 139 meq/L (136-145)
[2018-04-22 14:20] LABS: Alkaline Phosphatase 99 U/L (45-117); Creatine Kinase 114 U/L (39-308); Total Protein 6.9 g/dL (6.4-8.2)
[2018-04-22 14:32] LABS: Creatine Kinase MB 3.3 ng/mL (0.5-3.6)
--- NOTE | 2018-04-22 14:34 | XR ---
EXAM DATE: 04/22/2018 2:16 PM EST AGE/SEX: 77 years / Male INDICATIONS: Chest pain. CLINICAL DATA: This is the patient's initial encounter. Patient reports that signs and symptoms have been present for 1 day and indicates a pain score of 4/10. MEDICAL/SURGICAL HISTORY: Diabetes. Hypercholesterolemia. Hypertension. Hypothyroidism. Ap pendectomy. Total knee replacement, right. Left hip replacement. Hernia repair COMPARISON: [facility] – [place]ST 1V SINGLE AP, 04/16/2018. . FINDINGS: A single AP view of the chest demonstrates the lungs to be symmetrically aerated without evidence of mass, infiltrate or effusion. The cardiomediastinal contours are unremarkable. Osseous structures a re intact. CONCLUSION: No acute disease Electronically signed by: Campbell Dickens MD 04/22/2018 2:33 PM EST
[2018-04-22] MEDS ORDERED: Aluminum/Magnesium/Simethacone Susp 30 ML UDC PO ONE (15:30)
[2018-04-22] MEDS ORDERED: Pantoprazole Inj 40 MG Vial IV.PUSH ONE (15:33)
[2018-04-22] MEDS ORDERED: Ramipril 5 MG Capsule PO ONE (17:00)
--- NOTE | 2018-04-22 17:16 | P.HP ---
History of Present Illness Service: Hospitalist Primary Care Physician: Ryan López DO Chief Complaint: Chest pain History of Present Illness: Patient is a 77-year-old male with a past medical history of coronary artery disease post LAD stent, DM, hyperlipidemia, hypertension, hypothyroidism and chronic back pain. He presented to the emergency room with a complaint of chest pain and burning. Patient recently had 2 cardiac stents placed about 3 weeks ago and a third stent was placed about 1 week ago due to controlled dissection in the distal LAD. Follows with Dr. Chauhan. He came into the emergency room via EMS because he had chest pain with burning. Describes it as a pressure inside of his chest. He did take nitro x3 with some relief however the pain came back. Patient tells me that the pain is just like the pain he had prior to getting his stents. Pain is present with both exertion and rest. Reports that he has been compliant with his medications. No shortness of breath. No dizziness or syncope. No palpitations. no nausea vomiting or diarrhea. He has been tolerating meals without difficulty. Urinating without difficulty. Regular bowel movements. No edema. - Diagnosis (1) Stented coronary artery (2) CAD (coronary artery disease) (3) Diabetes mellitus (4) HTN (hypertension) (5) Chest pain Review of Systems All other systems reviewed negative except as stated in HPI PMFSH - History History Provided By: Patient, Family Member, Medical Record - Medical History Medical History: Medical History (Last Reviewed 04/22/18 @ 16:49 by DANIEL Scott) Chronic back pain Diabetes High cholesterol Hypertension Hypothyroidism - Surgical History Surgical History: Surgical History (Last Reviewed 04/22/18 @ 16:49 by DANIEL Scott) History of appendectomy History of hernia repair History of left hip replacement History of right knee joint replacement Stented coronary artery - Family History Family History: Family History (Last Reviewed 04/22/18 @ 16:49 by DANIEL Scott) Mother Family history of heart disease Father Family history of heart disease - Social History I have reviewed the patient's Social History: Yes - Tobacco History Second Hand Smoke Exposure: No Tobacco Use In Past 30 Days: No Smoking Status: Former smoker Number of Pack Years (if former smoker): 25 (Quit smoking in 1974) - Alcohol History How Often Do You Have a Drink Containing Alcohol: Never - Substance Use History Substance History: No History of Abuse - Travel History Recent Travel in the [place] Within the Last 8 Weeks: No Recent Travel Out of the Country Within the Last 8 Weeks: No - Immunization History Tetanus Immunization: <5 Years Medications and Allergies Active Medications: Active Medications Sodium Chloride (Ns Flush) 2 ml IV.FLUSH UNSCH PRN PRN Reason: FLUSH AFTER USING IV ACCESS Allergies Allergy/AdvReac Type Severity Reaction Status Date / Time Sulfa (Sulfonamide Allergy Severe RASH Verified 04/22/18 14:17 Antibiotics) triprolidine Allergy Intermediate HYPERACTIVE Verified 04/22/18 14:17 pseudoephedrine Allergy Mild HYPERACTIVE Verified 04/22/18 14:17 Home Medications Medication Instructions Recorded Confirmed Type atorvastatin 80 mg PO DAILY 04/06/18 04/22/18 History gabapentin 1,800 mg PO HS 04/06/18 04/22/18 History glyburide 5 mg PO DAILY 04/06/18 04/22/18 History levothyroxine [Synthroid] 25 mcg PO DAILY 04/06/18 04/22/18 History metformin 1,200 mg PO BID 04/06/18 04/22/18 History sitagliptin [Januvia] 100 mg PO DAILY 04/06/18 04/22/18 History oxycodone 10 mg PO TID 04/22/18 04/22/18 History Exam Vital signs: Vital Signs 04/22/18 13:55 04/22/18 14:32 Temperature 99 F Pulse Rate 78 Respiratory Rate 16 Blood Pressure 146/59 H Pulse Oximetry 99 98 Intake & Output 04/21/18 04/22/18 04/22/18 18:59 06:59 18:59 Weight 90.718 kg Narrative: GENERAL: Well-nourished, well-developed adult male in no obvious distress. SKIN: Warm and dry. HEAD: Atraumatic. Normocephalic. CARDIOVASCULAR: Regular rate and rhythm. RESPIRATORY: No accessory muscle use. Clear to auscultation. Breath sounds equal bilaterally. GASTROINTESTINAL: Abdomen soft, non-tender, non-distended. Positive bowel sounds. MUSCULOSKELETAL: Extremities without edema. No obvious deformities. Poor circulation NEUROLOGICAL: Awake and alert. No obvious cranial nerve deficits. Motor grossly within normal limits. Normal speech. PSYCHIATRIC: Appropriate mood and affect; insight and judgment good. Results - Labs CBC & Chem 7: 04/22/18 13:49 04/22/18 13:49 Labs: Laboratory Results - last 24 hr 04/22/18 04/22/18 04/22/18 13:49 13:49 13:49 WBC 9.1 RBC 4.24 L Hgb 12.3 L Hct 36.9 L MCV 87.0 MCH 29.0 MCHC 33.3 RDW 16.1 Plt Count 172 MPV 8.5 Neut % (Auto) 74.0 H Lymph % (Auto) 14.1 [place] % (Auto) 8.1 H Eos % (Auto) 3.0 Baso % (Auto) 0.8 Neut # (Auto) 6.8 Lymph # (Auto) 1.3 [place] # (Auto) 0.7 Eos # (Auto) 0.3 Baso # (Auto) 0.1 WBC Differential . Differential Comment Auto diff final PT 10.5 INR 1.0 APTT 29.5 Sodium 139 Potassium 4.4 Chloride 105 Carbon Dioxide 26.8 Anion Gap 7 BUN 15 Creatinine 1.34 H Estimated GFR 52 L Random Glucose 216 H Calcium 8.8 Magnesium 1.6 Total Bilirubin 0.8 AST 15 ALT 19 Alkaline Phosphatase 99 Total Creatine Kinase 114 CK-MB (CK-2) 3.3 Troponin I Less than 0.02 L Total Protein 6.9 Albumin 3.2 L - Imaging Impressions Chest X-Ray 04/22/18 13:47 CONCLUSION: No acute disease Caprini VTE Risk Assessment Caprini VTE Risk Assessment: No/Low Risk (score <= 1) Caprini Risk Assessment Model: Point Value = 1 Point Value = 2 Point Value = 3 Point Value = 5 Age 41-60 Minor surgery BMI > 25 kg/m2 Swollen legs Varicose veins or History of unexplained or recurrent spontaneous Oral contraceptives or hormone replacement Sepsis (< 1 month) Serious lung disease, including pneumonia (< 1 month) Abnormal pulmonary function Acute myocardial infarction Congestive heart failure (< 1 month) History of inflammatory bowel disease Medical patient at bed rest Age 61-74 Arthroscopic surgery Major open surgery (> 45 min) Laparoscopic surgery (> 45 min) Malignancy Confined to bed (> 72 hours) Immobilizing plaster cast Central venous access Age >= 75 History of VTE Family history of VTE Factor V Leiden Prothrombin [id number] Lupus anticoagulant Anticardiolipin antibodies Elevated serum homocysteine Heparin-induced thrombocytopenia Other congenital or acquired thrombophilia Stroke (< 1 month) Elective arthroplasty Hip, pelvis, or leg fracture Acute spinal cord injury (< 1 month) Prophylaxis Regimen: Total Risk Factor Score Risk Level Prophylaxis Regimen 0-1 Low Early ambulation 2 Moderate Order ONE of the following: *Sequential Compression Device (SCD) *Heparin 5000 units SQ BID 3-4 Higher Order ONE of the following medications: *Heparin 5000 units SQ TID *Enoxaparin/Lovenox 40 mg SQ daily (WT < 150 kg, CrCl > 30 mL/min) *Enoxaparin/Lovenox 30 mg SQ daily (WT < 150 kg, CrCl > 10-29 mL/min) *Enoxaparin/Lovenox 30 mg SQ BID (WT < 150 kg, CrCl > 30 mL/min) AND/OR *Sequential Compression Device (SCD) 5 or more Highest Order ONE of the following medications: *Heparin 5000 units SQ TID (Preferred with Epidurals) *Enoxaparin/Lovenox 40 mg SQ daily (WT < 150 kg, CrCl > 30 mL/min) *Enoxaparin/Lovenox 30 mg SQ daily (WT < 150 kg, CrCl > 10-29 mL/min) *Enoxaparin/Lovenox 30 mg SQ BID (WT < 150 kg, CrCl > 30 mL/min) AND *Sequential Compression Device (SCD) Assessment and Plan - Assessment (1) Stented coronary artery Code(s): Z95.5 - Presence of coronary angioplasty implant and graft Status: Acute (2) CAD (coronary artery disease) Code(s): I25.10 - Atherosclerotic heart disease of [place] coronary artery without angina pectoris Status: Acute (3) Diabetes mellitus Code(s): E11.9 - Type 2 diabetes mellitus without complications Status: Acute (4) HTN (hypertension) Code(s): I10 - Essential (primary) hypertension Status: Acute (5) Chest pain Code(s): R07.9 - Chest pain, unspecified Status: Acute - Plan Patient is a 77-year-old male with a past medical history of coronary artery disease post LAD stent, DM, hyperlipidemia, hypertension, hypothyroidism and chronic back pain. He presented to the emergency room with a complaint of chest pain and burning. Patient recently had 2 cardiac stents placed about 3 weeks ago and a third stent was placed about 1 week ago due to controlled dissection in the distal LAD. Follows with Dr. Chauhan. Chest pain/burning -Chest x-ray and labs grossly normal. Initial troponin negative-trend -EKG ordered -GI cocktail to rule out reflux -Cardiology consulted -observation for now. N.p.o. after midnight. Coronary artery disease with stent -Continue home medication Hypertension -Continue home medications DM -Sliding scale Hyperlipidemia -Continue home medications Chronic back pain -E-For[facility]se queried -shows consistent Rx for oxycodone from pain management; will continue. DVT prophylaxis: On ASA and Effient Discharge planning: Likely home after observation (5) Chest pain Qualifiers: Chest pain type: unspecified Qualified Code(s): R07.9 - Chest pain, unspecified
[2018-04-22] MEDS ORDERED: Dextrose 50% in Water 50 ML Vial IV.PUSH PRN (17:51)
--- NOTE | 2018-04-22 18:23 | MB ---
cc: Prashant Chauhan MD DATE: 04/22/2018 HISTORY OF PRESENT ILLNESS: Bryn is a very pleasant 77-year-old gentleman who in the beginning of March presented with a non-STEMI, found to have an occluded mid LAD, which reconstituted in the mid to distal segment and also had an 80% proximal mid lesion. He underwent successful PCI of both those lesions with bare metal stents. He had a distal dissection. He came back in the following week with chest pain, mildly elevated troponin. I was able to place an 8 mm stent at the dissection, but could not deliver a longer stent due to the stent obstructing on the previously placed stent in the proximal mid segment. There was a bit of haziness proximal to the stent, but no obvious dissection. He was evaluated by Dr. Va Lira. He did not think that a CABG was indicated. The patient came back to my office and then was readmitted to the ER. Troponins were decreasing. He came back to my office again had a nuclear stress test last week, which was completely normal. He exercised 4-1/2 minutes, had no chest pain. He had a prolonged episode of chest pain today. He says 3/10, which is similar to the pain he had initially before any of his stents. Otherwise, denies any fever, chills, cough, GI or bleeding, PND, orthopnea, syncope, or dizziness. PAST MEDICAL HISTORY: As per history of present illness. He has a history of chronic back pain, diabetes, hyperlipidemia, hypertension, hypothyroidism. PAST SURGICAL HISTORY: Appendectomy, hernia repair, left hip replacement, right knee joint replacement. ALLERGIES: SULFA, TRIPROLIDINE, PSEUDOEPHEDRINE. MEDICATIONS: At home ramipril 5 mg daily, prasugrel 10 mg daily, metformin 1200 mg b.i.d., atorvastatin 80 mg daily, aspirin 162 mg daily, amlodipine 10 mg daily, atenolol 100 mg daily. PHYSICAL EXAMINATION: VITAL SIGNS: Blood pressure 146/59, pulse 78, respiratory rate 16, temperature 99. GENERAL: He is alert and oriented x3, in no acute distress. NECK: Supple. No JVD. No bruit. CARDIOVASCULAR: S1, S2. No murmurs, rubs, or gallops. LUNGS: Clear to auscultation bilaterally. ABDOMEN: Soft, nontender, nondistended with positive bowel sounds. EXTREMITIES: No lower extremity edema. IMAGING STUDIES: Chest x-ray shows no acute disease. EKG is not available at the time of dictation. LABORATORY DATA: White count 9.1, hemoglobin 12.3, hematocrit 36.9, platelet count 172. INR 1.0. Sodium 139, potassium 4.4, chloride 105, bicarbonate 26.8, BUN 15, creatinine 1.34. Troponin less than 0.02. FINAL DIAGNOSES: 1. Chest pain. 2. Coronary artery disease. 3. Diabetes. 4. Chronic renal insufficiency. DISCUSSION: The patient states he is compliant with his dual antiplatelet therapy. I am not certain that his pain is coming from ischemic etiology. He may have a flap that still exists in the distal LAD. It was unclear from the last catheterization. Dr. Lira did not think that CABG was indicated. He has a difficult to deliver stent to the distal LAD and he had a completely normal nuclear stress test in my office this week where he walked 4-1/2 minutes on the standard [place] protocol. No chest pain. No EKG changes. Normal gated SPECT ejection fraction and completely normal imaging. His initial troponin is less than 0.02. At this point in time, I think it is reasonable to do serial enzymes. I am going to order an EKG, also get a 2-D echo. I will restart his aspirin, Effient, Lipitor, atenolol, ramipril, and Norvasc. We will also add nitro paste as well. Further recommendations based on the trend in his troponin and symptoms. Prashant Chauhan MD AWC/rd , 04:42 PM , 04:52 PM
[2018-04-22] MEDS: Insulin NovoLOG Aspart Correctional Sugar Inj SQ SCH (20:25)
[2018-04-22] MEDS: Gabapentin 300 MG Capsule PO SCH (20:37)
[2018-04-22] MEDS ORDERED: GABAPENTIN 1800 MG PO SCH (21:00)
[2018-04-23] MEDS ORDERED: Atenolol 100 MG Tablet PO SCH (09:00)
[2018-04-23] MEDS ORDERED: amLODIPine 10 MG Tablet PO SCH (09:00)
[2018-04-23] MEDS: Gabapentin 300 MG Capsule PO SCH ×2 (10:46→14:05)
[2018-04-23] MEDS: Insulin NovoLOG Aspart Correctional Sugar Inj SQ SCH ×2 (12:28→14:06)
--- NOTE | 2018-04-23 13:54 | ECG ---
Date Performed: 04/22/2018 Time Performed: 13:40:54 PTAGE: 77 years EKG: SINUS BRADYCARDIA MODERATE T-WAVE ABNORMALITY, CONSIDER ANTERIOR ISCHEMIA ABNORMAL ECG Sinc e PREVIOUS TRACING , no significant change noted PREVIOUS TRACIN04/16/2018 17.05 DOCTOR: Prashant Chauhan Interpretating Date/Time 04/23/2018 13:53:43
--- NOTE | 2018-04-23 13:56 | P.PNCA ---
Subjective Interval history: assymptomatic in nad Medications and Allergies Active Medications: Active Medications Amlodipine Besylate (Norvasc) 10 mg PO DAILY [facility] Last Admin: 04/23/18 10:46 Dose: 10 mg Aspirin (Ecotrin) 162 mg PO DAILY [facility] Last Admin: 04/23/18 10:47 Dose: 162 mg Atenolol (Tenormin) 100 mg PO DAILY [facility] Last Admin: 04/23/18 10:47 Dose: 100 mg Atorvastatin Calcium (Lipitor) 80 mg PO HS [facility] Last Admin: 04/22/18 20:25 Dose: Not Given Dextrose (D50w Vial) 50 ml IV.PUSH UNSCH PRN PRN Reason: PER HYPOGLYCEMIA PROTOCOL Gabapentin (Neurontin) 300 mg PO TID [facility] Last Admin: 04/23/18 10:46 Dose: 300 mg Glucagon (Glucagon Inj) 1 mg OTHER PRN PRN PRN Reason: for Hypoglycemia Protocol Insulin Aspart (Novolog Insulin Correctional Sugar Inj) 0 unit SQ [facility]; Protocol Last Admin: 04/23/18 12:28 Dose: Not Given Nitroglycerin (Nitro-Bid 2% Oint) 2 inch TOPICAL Q6HR [facility] Last Admin: 04/23/18 05:16 Dose: 2 inch Oxycodone HCl (Roxicodone) 10 mg PO TID [facility] Last Admin: 04/23/18 10:46 Dose: 10 mg Prasugrel (Effient) 10 mg PO DAILY [facility] Last Admin: 04/23/18 10:47 Dose: 10 mg Sodium Chloride (Ns Flush) 2 ml IV.FLUSH UNSCH PRN PRN Reason: FLUSH AFTER USING IV ACCESS Allergies Allergy/AdvReac Type Severity Reaction Status Date / Time Sulfa (Sulfonamide Allergy Severe RASH Verified 04/22/18 14:17 Antibiotics) triprolidine Allergy Intermediate HYPERACTIVE Verified 04/22/18 14:17 pseudoephedrine Allergy Mild HYPERACTIVE Verified 04/22/18 14:17 Home Medications Medication Instructions Recorded Confirmed Type atorvastatin 80 mg PO DAILY 04/06/18 04/22/18 History gabapentin 1,800 mg PO HS 04/06/18 04/22/18 History glyburide 5 mg PO DAILY 04/06/18 04/22/18 History levothyroxine [Synthroid] 25 mcg PO DAILY 04/06/18 04/22/18 History metformin 1,200 mg PO BID 04/06/18 04/22/18 History sitagliptin [Januvia] 100 mg PO DAILY 04/06/18 04/22/18 History oxycodone 10 mg PO TID 04/22/18 04/22/18 History Physical Exam Vital signs: Vital Signs 04/22/18 13:55 04/22/18 14:32 04/22/18 19:28 Temperature 99 F 98.7 F Pulse Rate 78 62 Respiratory Rate 16 18 Blood Pressure 146/59 H 131/68 Pulse Oximetry 99 98 96 04/22/18 20:00 04/22/18 23:34 04/23/18 00:00 Temperature 97.7 F Pulse Rate 64 54 L 53 L Respiratory Rate 18 Blood Pressure 102/53 L Pulse Oximetry 97 04/23/18 04:00 04/23/18 04:37 04/23/18 08:00 Temperature 98.8 F 97.2 F L Pulse Rate 55 L 56 L 59 L Respiratory Rate 18 20 Blood Pressure 122/59 L 136/73 Pulse Oximetry 93 L 94 L 04/23/18 09:00 04/23/18 11:54 Temperature 97.7 F Pulse Rate 59 L 52 L Respiratory Rate 20 Blood Pressure 106/66 Pulse Oximetry 93 L Intake & Output 04/22/18 04/23/18 04/23/18 18:59 06:59 18:59 Weight 97.522 kg Other: Weight On Admission 97.522 kg - Constitutional no acute distress - Routine HEENT Exam Head: Present: normocephalic - Routine Respiratory Exam Present: CTA bilaterally - Routine Cardiovascular Exam Present: S1, S2 - Routine Abdominal Exam Present: soft - Routine Extremities Exam Comments: no michi Results 04/22/18 13:49 04/22/18 13:49 Cardiac Enzymes 04/22/18 04/22/18 04/23/18 Range/Units 13:49 20:15 05:40 AST 15 (15-37) U/L CK-MB (CK-2) 3.3 (0.5-3.6) ng/mL Troponin I Less than 0.02 L Less than 0.02 L Less than 0.02 L (0.02-0.05) ng/mL Coagulation 04/22/18 Range/Units 13:49 PT 10.5 (9.8-11.6) sec APTT 29.5 (23.4-31.7) sec CBC 04/22/18 Range/Units 13:49 WBC 9.1 (4.0-11.0) th/mm3 RBC 4.24 L (4.50-5.90) mil/mm3 Hgb 12.3 L (13.0-17.0) gm/dL Hct 36.9 L (39.0-51.0) % Plt Count 172 (150-450) th/mm3 Neut # (Auto) 6.8 (1.8-7.7) th/mm3 Lymph # (Auto) 1.3 (1.0-4.8) th/mm3 [place] # (Auto) 0.7 (0.0-0.9) th/mm3 Eos # (Auto) 0.3 (0.0-0.4) th/mm3 Baso # (Auto) 0.1 (0.0-0.2) th/mm3 Comprehensive Metabolic Panel 04/22/18 Range/Units 13:49 Sodium 139 (136-145) meq/L Potassium 4.4 (3.5-5.1) meq/L Chloride 105 (98-107) meq/L Carbon Dioxide 26.8 (21.0-32.0) meq/L BUN 15 (7-18) mg/dL Creatinine 1.34 H (0.60-1.30) mg/dL Calcium 8.8 (8.5-10.1) mg/dL AST 15 (15-37) U/L ALT 19 (12-78) U/L Alkaline Phosphatase 99 (45-117) U/L Total Protein 6.9 (6.4-8.2) g/dL Albumin 3.2 L (3.4-5.0) g/dL Intake and Output 04/22/18 04/23/18 04/23/18 22:59 06:59 14:59 Other: Weight 97.522 kg Weight On Admission 97.522 kg - Imaging and Cardiology Imaging: Impressions Chest X-Ray 04/22/18 13:47 CONCLUSION: No acute disease Assessment and Plan - Assessment (1) Chest pain Code(s): R07.9 - Chest pain, unspecified Status: Acute (2) CAD (coronary artery disease) Code(s): I25.10 - Atherosclerotic heart disease of [place] coronary artery without angina pectoris Status: Chronic (3) Diabetes mellitus Code(s): E11.9 - Type 2 diabetes mellitus without complications Status: Chronic - Plan 1.) CAD - chest pain resolved, trop neg x 3, ok to dc on aspirin 162 mg qd, effient 10 mg qd, atenolol, altace, norvasc and imdur, lipitor 80 hs, f/u with me 04/25/18 in my office and start cardiac rehab, patient and his advised to call 911 if chest pain lasts > 15 minutes, they understand (1) Chest pain Qualifiers: Chest pain type: unspecified Qualified Code(s): R07.9 - Chest pain, unspecified
--- NOTE | 2018-04-23 14:46 | P.DS ---
Date of admission: 04/22/18 15:35 Primary care physician: Ryan López DO Attending physician on discharge: Rosaura Becerril Anticipated date of discharge: 04/23/18 Brief History from admission: Patient is a 77-year-old male with a past medical history of coronary artery disease post LAD stent, DM, hyperlipidemia, hypertension, hypothyroidism and chronic back pain. He presented to the emergency room with a complaint of chest pain and burning. Patient recently had 2 cardiac stents placed about 3 weeks ago and a third stent was placed about 1 week ago due to controlled dissection in the distal LAD. Follows with Dr. Chauhan. He came into the emergency room via EMS because he had chest pain with burning. Describes it as a pressure inside of his chest. He did take nitro x3 with some relief however the pain came back. Patient tells me that the pain is just like the pain he had prior to getting his stents. Pain is present with both exertion and rest. Reports that he has been compliant with his medications. No shortness of breath. No dizziness or syncope. No palpitations. no nausea vomiting or diarrhea. He has been tolerating meals without difficulty. Urinating without difficulty. Regular bowel movements. No edema. Patient update on day of discharge: Patient is seen sitting up in chair. He tells me that he is feeling good today with no further episode of chest pain. No shortness of breath, syncope, dizziness or diaphoresis. No nausea vomiting or diarrhea. DS: Diagnosis - Discharge Diagnosis (1) Stented coronary artery Status: Chronic (2) CAD (coronary artery disease) Status: Chronic (3) Diabetes mellitus Status: Chronic (4) HTN (hypertension) Status: Chronic (5) Chest pain Status: Resolved DS: Summary Hospital Course: Patient is a 77-year-old male with a past medical history of coronary artery disease post LAD stent, DM, hyperlipidemia, hypertension, hypothyroidism and chronic back pain. He presented to the emergency room with a complaint of chest pain and burning. Patient recently had 2 cardiac stents placed about 3 weeks ago and a third stent was placed about 1 week ago due to controlled dissection in the distal LAD. Chest x-ray, labs and EKG not concerning. Troponins WNL. Patient evaluated by Dr. Chauhan-chest pain resolved and no intervention indicated at this time. Outpatient follow-up. - Time Spent with Patient Total time spent providing and/or coordinating discharge services: Less than 30 minutes - Quality: VTE Deep Vein Thrombosis/Pulmonary Embolism Present on Admission: No Exam Vital signs: Vital Signs 04/22/18 19:28 04/22/18 20:00 04/22/18 23:34 Temperature 98.7 F 97.7 F Pulse Rate 62 64 54 L Respiratory Rate 18 18 Blood Pressure 131/68 102/53 L Pulse Oximetry 96 97 04/23/18 00:00 04/23/18 04:00 04/23/18 04:37 Temperature 98.8 F Pulse Rate 53 L 55 L 56 L Respiratory Rate 18 Blood Pressure 122/59 L Pulse Oximetry 93 L 04/23/18 08:00 04/23/18 09:00 04/23/18 11:54 Temperature 97.2 F L 97.7 F Pulse Rate 59 L 59 L 52 L Respiratory Rate 20 20 Blood Pressure 136/73 106/66 Pulse Oximetry 94 L 93 L Intake & Output 04/22/18 04/23/18 04/23/18 18:59 06:59 18:59 Weight 97.522 kg Other: Weight On Admission 97.522 kg Narrative: GENERAL: Well-nourished, well-developed adult male in no obvious distress. SKIN: Warm and dry. HEAD: Atraumatic. Normocephalic. CARDIOVASCULAR: Regular rate and rhythm. RESPIRATORY: No accessory muscle use. Clear to auscultation. Breath sounds equal bilaterally. GASTROINTESTINAL: Abdomen soft, non-tender, non-distended. Positive bowel sounds. MUSCULOSKELETAL: Extremities without edema. No obvious deformities. Poor circulation NEUROLOGICAL: Awake and alert. No obvious cranial nerve deficits. Motor grossly within normal limits. Normal speech. PSYCHIATRIC: Appropriate mood and affect; insight and judgment good. Results Procedures completed during hospitalization: none Labs on day of discharge: Labs from last 24 hours 04/23/18 04/23/18 04/23/18 13:06 08:25 05:40 POC Glucose 196 H 140 H Troponin I Less than 0.02 L 04/22/18 04/22/18 20:15 19:55 POC Glucose 304 H Troponin I Less than 0.02 L - Impressions ITS Impressions Chest X-Ray 04/22/18 13:47 CONCLUSION: No acute disease Discharge Plan - Discharge Disposition Patient Disposition: 01 Discharge Home - Discharge Condition Condition: Stable - Discharge Order Discharge Orders: Discharge Order (Routine); Ordered 04/23/18 Ordered By: Janene Hebert - Physicians Team Primary Care Provider: Ryan López Attending Provider: Rosaura Becerril Other Providers: Prashant Chauhan MD
== END 2018-04-23 18:03 | disposition home or self-care (01) ==
LOC: NEPC 13:39 → NEDA 15:35 → INTOOBSV 15:35 → NEPHCDU 18:11
PROVIDERS: ADMIT Hospitalist; ATTEND Hospitalist
DX: E11.22 Type 2 diabetes mellitus with diabetic chronic kidney disease; M54.9 Dorsalgia, unspecified; G89.29 Other chronic pain; Z79.82 Long term (current) use of aspirin; Z90.49 Acquired absence of other specified parts of digestive tract; Z88.2 Allergy status to sulfonamides; N18.9 Chronic kidney disease, unspecified; Z79.4 Long term (current) use of insulin; Z88.8 Allergy status to other drugs, medicaments and biological substances; I25.10 Atherosclerotic heart disease of native coronary artery without angina pectoris; F17.210 Nicotine dependence, cigarettes, uncomplicated; R07.9 Chest pain, unspecified; Z96.642 Presence of left artificial hip joint; I12.9 Hypertensive chronic kidney disease with stage 1 through stage 4 chronic kidney disease, or unspecified chronic kidney disease; E78.00 Pure hypercholesterolemia, unspecified; E78.5 Hyperlipidemia, unspecified; Z82.49 Family history of ischemic heart disease and other diseases of the circulatory system; Z95.5 Presence of coronary angioplasty implant and graft; E03.9 Hypothyroidism, unspecified